=== PATIENT | female | born 1990 | race Caucasian/White ===

== ENCOUNTER 2020-06-05 20:49 | Emergency (ER) | payer BC ==
[2020-06-05] MEDS ORDERED: ACETAMINOPHEN TAB 500 MG TAB PO STA (21:16)
--- NOTE | 2020-06-05 21:20 | ED ---
Abdominal Pain HPI - General Chief Complaint: Abdominal Pain Stated Complaint: Abdominal and back pain Time Seen by Provider: 06/05/20 20:58 Source: patient, family Mode of arrival: ambulatory Limitations: no limitations - History of Present Illness Initial Comments: Patient's 29-year-old female presenting to the emergency department with a chief complaint of left-sided abdominal pain. Patient states her symptoms began about 48 hours ago with gradual increase in severity. Patient reports sports she has significant pain about 2 hours prior to arrival but has now subsided. States the pain is currently about 4 and dull in nature. Patient states she has also been diagnosed with hypertension but is not treated. Does not see a primary care physician. Sensation was diagnosed with hypertension several years ago. States her younger brother and both her parents have. Denies any renal issues. Denies any nausea or vomiting. Denies any chest pain shortness of breath. - Related Data Previous Rx's Medication Instructions Recorded Ondansetron Odt [Zofran Odt] 4 mg PO Q8HR PRN #10 tab 06/05/20 Tamsulosin [Flomax] 0.4 mg PO DAILY #7 cap 06/05/20 Allergies Allergy/AdvReac Type Severity Reaction Status Date / Time Penicillins Allergy Rash/Hives Verified 06/05/20 20:55 Review of Systems ROS Statement: Those systems with pertinent positive or pertinent negative responses have been documented in the HPI. ROS Other: All systems not noted in ROS Statement are negative. Past Medical History Past Medical History: Asthma, Hypertension History of Any Multi-Drug Resistant Organisms: None Reported Additional Past Surgical History / Comment(s): wisdom teeth Past Psychological History: Anxiety, Depression Smoking Status: Never smoker Past Alcohol Use History: Occasional Past Drug Use History: None Reported General Exam Limitations: no limitations General appearance: alert, in no apparent distress Head exam: Present: atraumatic, normocephalic, normal inspection Eye exam: Present: normal appearance, PERRL, EOMI Pupils: Present: normal accommodation ENT exam: Present: normal exam, normal oropharynx, mucous membranes moist, TM's normal bilaterally, normal external ear exam Neck exam: Present: normal inspection, full ROM. Absent: tenderness Respiratory exam: Present: normal lung sounds bilaterally. Absent: respiratory distress, wheezes Cardiovascular Exam: Present: regular rate, normal rhythm, normal heart sounds GI/Abdominal exam: Present: soft, tenderness (Mild left flank pain.). Absent: distended, guarding, rebound, rigid Extremities exam: Present: normal inspection, full ROM, normal capillary refill. Absent: tenderness Back exam: Present: normal inspection, full ROM, CVA tenderness (L) Neurological exam: Present: alert, oriented X3, CN II-XII intact, normal gait Psychiatric exam: Present: normal affect, normal mood Skin exam: Present: warm, dry, intact, normal color Course Vital Signs 06/05/20 06/05/20 06/05/20 20:50 21:37 22:30 Temperature 98.2 F Pulse Rate 82 89 76 Respiratory 16 18 18 Rate Blood Pressure 202/124 191/119 183/105 O2 Sat by Pulse 96 97 95 Oximetry 06/06/20 00:24 Temperature 98.0 F Pulse Rate 79 Respiratory 18 Rate Blood Pressure 169/113 O2 Sat by Pulse 95 Oximetry Medical Decision Making - Medical Decision Making Patient is a 29-year-old female presenting to the emergency department with chief complaint abdominal pain. On exam there is mild left flank tenderness. Mild left CVA tenderness. CT of abdomen and pelvis reveals several renal stones. There also appears to be a 5 mm obstructing cockle is the left ureter. Left-sided hydronephrosis and hydroureter. Patient also has history of hypertension that is not currently being treated. Patient given fluids, antiemetics and analgesia. She only requested Tylenol for pain control. Patient was discharged with a Tylenol 3 starter pack, Flomax, Zofran. Advised to drink lots of fluid. Patient advised about the importance of establishing care with a primary care physician in order to treat her hypertension. She was also advised to follow-up with urologist. Return parameters were thoroughly discussed with patient was understanding and agreeable. Throughout her ED stay, blood pressure gradually decreased. Case discussed physician. - Lab Data Result diagrams: 06/05/20 21:25 06/05/20:25 Lab Results 06/05/20 06/05/20 06/05/20 Range/Units :25 21:25 21:25 WBC 8.3 (3.8-10.6) k/uL RBC 4.65 (3.80-5.40) m/uL Hgb 13.1 (11.4-16.0) gm/dL Hct 39.5 (34.0-46.0) % MCV 84.9 (80.0-100.0) fL MCH 28.2 (25.0-35.0) pg MCHC 33.2 (31.0-37.0) g/dL RDW 13.2 (11.5-15.5) % Plt Count 278 (150-450) k/uL Neutrophils % 64 % Lymphocytes % 26 % Monocytes % 5 % Eosinophils % 2 % Basophils % 1 % Neutrophils # 5.3 (1.3-7.7) k/uL Lymphocytes # 2.1 (1.0-4.8) k/uL Monocytes # 0.4 (0-1.0) k/uL Eosinophils # 0.2 (0-0.7) k/uL Basophils # 0.1 (0-0.2) k/uL Sodium 142 (137-145) mmol/L Potassium 3.9 (3.5-5.1) mmol/L Chloride 107 (98-107) mmol/L Carbon Dioxide 28 (22-30) mmol/L Anion Gap 7 mmol/L BUN 14 (7-17) mg/dL Creatinine 1.13 H (0.52-1.04) mg/dL Est GFR (CKD-EPI)AfAm 76 (>60 ml/min/1.73 sqM) Est GFR (CKD-EPI)NonAf 66 (>60 ml/min/1.73 sqM) Glucose 103 H (74-99) mg/dL Calcium 9.2 (8.4-10.2) mg/dL Total Bilirubin 0.2 (0.2-1.3) mg/dL AST 22 (14-36) U/L ALT 14 (4-34) U/L Alkaline Phosphatase 90 (38-126) U/L Total Protein 7.0 (6.3-8.2) g/dL Albumin 4.2 (3.5-5.0) g/dL Lipase 101 (23-300) U/L Urine Color Light Yellow Urine Appearance Clear (Clear) Urine pH 6.5 (5.0-8.0) Ur Specific [place] 1.011 (1.001-1.035) Urine Protein Negative (Negative) Urine Glucose (UA) Negative (Negative) Urine Ketones Negative (Negative) Urine Blood Negative (Negative) Urine Nitrite Negative (Negative) Urine Bilirubin Negative (Negative) Urine Urobilinogen <2.0 (<2.0) mg/dL Ur Leukocyte Esterase Trace H (Negative) Urine RBC 1 (0-5) /hpf Urine WBC 4 (0-5) /hpf Ur Squamous Epith Cells <1 (0-4) /hpf Urine Bacteria Rare H (None) /hpf Urine Mucus Rare H (None) /hpf Urine HCG, Qual (Not Detectd) 06/05/20 Range/Units 21:25 WBC (3.8-10.6) k/uL RBC (3.80-5.40) m/uL Hgb (11.4-16.0) gm/dL Hct (34.0-46.0) % MCV (80.0-100.0) fL MCH (25.0-35.0) pg MCHC (31.0-37.0) g/dL RDW (11.5-15.5) % Plt Count (150-450) k/uL Neutrophils % % Lymphocytes % % Monocytes % % Eosinophils % % Basophils % % Neutrophils # (1.3-7.7) k/uL Lymphocytes # (1.0-4.8) k/uL Monocytes # (0-1.0) k/uL Eosinophils # (0-0.7) k/uL Basophils # (0-0.2) k/uL Sodium (137-145) mmol/L Potassium (3.5-5.1) mmol/L Chloride (98-107) mmol/L Carbon Dioxide (22-30) mmol/L Anion Gap mmol/L BUN (7-17) mg/dL Creatinine (0.52-1.04) mg/dL Est GFR (CKD-EPI)AfAm (>60 ml/min/1.73 sqM) Est GFR (CKD-EPI)NonAf (>60 ml/min/1.73 sqM) Glucose (74-99) mg/dL Calcium (8.4-10.2) mg/dL Total Bilirubin (0.2-1.3) mg/dL AST (14-36) U/L ALT (4-34) U/L Alkaline Phosphatase (38-126) U/L Total Protein (6.3-8.2) g/dL Albumin (3.5-5.0) g/dL Lipase (23-300) U/L Urine Color Urine Appearance (Clear) Urine pH (5.0-8.0) Ur Specific [place] (1.001-1.035) Urine Protein (Negative) Urine Glucose (UA) (Negative) Urine Ketones (Negative) Urine Blood (Negative) Urine Nitrite (Negative) Urine Bilirubin (Negative) Urine Urobilinogen (<2.0) mg/dL Ur Leukocyte Esterase (Negative) Urine RBC (0-5) /hpf Urine WBC (0-5) /hpf Ur Squamous Epith Cells (0-4) /hpf Urine Bacteria (None) /hpf Urine Mucus (None) /hpf Urine HCG, Qual Not Detected (Not Detectd) Disposition Clinical Impression: Renal stone, Hydronephrosis Disposition: HOME SELF-CARE Condition: Stable Instructions (If sedation given, give patient instructions): Kidney Stones (ED) Additional Instructions: 2 pressure medication as directed. Follow-up with urologist. Establish a relationship with a primary care physician. Return to emergency department if symptoms worsen. Drink lots of fluids. Prescriptions: Tamsulosin [Flomax] 0.4 mg PO DAILY #7 cap Ondansetron Odt [Zofran Odt] 4 mg PO Q8HR PRN #10 tab PRN Reason: Nausea Is patient prescribed a controlled substance at d/c from ED?: No Referrals: None,Stated [Primary Care Provider] - 1-2 days Pérez Clark MD [REFERRING] - 1-2 days Santo Shepard MD [STAFF PHYSICIAN] - 1-2 days Ginny Hanks DO [REFERRING] - 1-2 days Time of Disposition: 23:53
[2020-06-05 21:40] VITALS: RESP 18
[2020-06-05 21:44] LABS: Basophils # (A) 0.1 k/uL (0-0.2); Basophils % (A) 1 %; Eosinophils # (A) 0.2 k/uL (0-0.7); Eosinophils % (A) 2 %; HCT 39.5 % (34.0-46.0); HGB 13.1 gm/dL (11.4-16.0); Lymphocytes # (A) 2.1 k/uL (1.0-4.8); Lymphocytes % (A) 26 %; MCH 28.2 pg (25.0-35.0); MCHC 33.2 g/dL (31.0-37.0); MCV 84.9 fL (80.0-100.0); Mean Platelet Volume 7.7; Monocytes # (A) 0.4 k/uL (0-1.0); Monocytes % (A) 5 %; Neutrophils # (A) 5.3 k/uL (1.3-7.7); Neutrophils % (A) 64 %; Platelet Count 278 k/uL (150-450); RBC 4.65 m/uL (3.80-5.40); RDW 13.2 % (11.5-15.5); WBC 8.3 k/uL (3.8-10.6)
[2020-06-05 21:48] LABS: Appearance,Urine Clear (Clear); Bacteria,Urine Rare /hpf; Bilirubin,Urine Negative (Negative); Blood,Urine Negative (Negative); Color,Urine Light Yellow; Glucose,Urine (UA) Negative (Negative); Ketones,Urine Negative (Negative); Leukocyte Esterase,Urine Trace (Negative); Mucus,Urine Rare /hpf; Nitrite,Urine Negative (Negative); PH, Urine 6.5 (5.0-8.0); Protein,Urine Negative (Negative); RBC,Urine 1 /hpf (0-5); Specific Gravity,Urine 1.011 (1.001-1.035); Squamous Epithelial Cell,Urine <1 /hpf (0-4); Urobilinogen,Urine <2.0 mg/dL (<2.0); WBC,Urine 4 /hpf (0-5)
[2020-06-05 21:56] LABS: Albumin 4.2 g/dL (3.5-5.0); Calcium 9.2 mg/dL (8.4-10.2); Potassium 3.9 mmol/L (3.5-5.1); Total Bilirubin 0.2 mg/dL (0.2-1.3)
--- NOTE | 2020-06-05 23:30 | CT ---
EXAMINATION TYPE: CT abdomen pelvis w con DATE OF EXAM: 06/05/2020 COMPARISON: None HISTORY: left flank pain CT DLP: 1300.3 mGycm Automated exposure control for dose reduction was used. CONTRAST: Performed with IV Contrast, patient injected with 100 mL of Isovue 300. Multiple axial sections were obtained from the diaphragm to the floor the pelvis with IV contrast. Lung bases are clear. There is no pleural effusion. Heart size is normal. There is no pericardial eff usion. Liver spleen pancreas gallbladder appear normal. Bile ducts are not dilated. Stomach appears normal. There is no adrenal mass. Kidneys have normal size. There is 2 small calculi upper pole left kidney that measure up to 3 mm. Th ere is 6 mm calculus lateral left kidney. There is left side hydronephrosis and hydroureter. There is apparent 5 mm obstructing calculus in the lower left ureter. Bladder distends smoothly. Uterus is an teverted. There is large soft tissue density 7 cm mass adjacent to the uterine fundus that is probabl y large fibroid. There is small amount of fluid in the cul-de-sac. Appendix is posterior and appears normal. There is no mesenteric edema. There is no ascites or free air. There is no sign of a bowel obstructio n. Lumbar vertebra have normal spacing and alignment. Bony pelvis is intact. There is no compression fracture. IMPRESSION: Obstructing calculus lower left ureter with left-sided hydronephrosis and hydroureter. There are several left renal calculi. Minimal free fluid in the pelvis of uncertain significance. This could be physiologic.
[2020-06-05] MEDS ORDERED: ACET/COD 300 MG/30 MG STARTER PACK 6 TAB BTL PO STA (23:51)
[2020-06-06 00:26] VITALS: BP 169/113; PULSE 79; TEMP 98
== END 2020-06-06 00:26 | disposition home or self-care (01) ==
LOC: EC 20:49
DX: N13.2 Hydronephrosis with renal and ureteral calculous obstruction (principal); I10 Essential (primary) hypertension; Z88.0 Allergy status to penicillin
CPT/HCPCS: 36415; 93005; 80053; 83690; 85025; 81001; 81025; 74177; 99284; Q9967

== ENCOUNTER 2020-06-17 20:02 | Observation (INO) | payer BC ==
[2020-06-17 21:24] LABS: Basophils # (A) 0.1 k/uL (0-0.2); Basophils % (A) 1 %; Eosinophils # (A) 0.1 k/uL (0-0.7); Eosinophils % (A) 1 %; HCT 40.9 % (34.0-46.0); HGB 13.2 gm/dL (11.4-16.0); Lymphocytes # (A) 2.6 k/uL (1.0-4.8); Lymphocytes % (A) 28 %; MCH 27.8 pg (25.0-35.0); MCHC 32.3 g/dL (31.0-37.0); Mean Platelet Volume 8.3; Monocytes # (A) 0.4 k/uL (0-1.0); Monocytes % (A) 5 %; Neutrophils # (A) 5.8 k/uL (1.3-7.7); Neutrophils % (A) 64 %; Platelet Count 283 k/uL (150-450); RBC 4.75 m/uL (3.80-5.40); RDW 13.5 % (11.5-15.5); WBC 9.2 k/uL (3.8-10.6)
[2020-06-17] MEDS ORDERED: ASPIRIN 81 MG PO STA (21:26)
[2020-06-17 21:33] LABS: Albumin 3.9 g/dL (3.5-5.0); Calcium 10.6 mg/dL (8.4-10.2); Magnesium 2.2 mg/dL (1.6-2.3); Total Bilirubin 0.3 mg/dL (0.2-1.3); Total Protein 6.8 g/dL (6.3-8.2)
[2020-06-17 21:34] LABS: Appearance,Urine Clear (Clear); Bilirubin,Urine Negative (Negative); Blood,Urine Negative (Negative); Color,Urine Light Yellow; Glucose,Urine (UA) Negative (Negative); Ketones,Urine Negative (Negative); Leukocyte Esterase,Urine Negative (Negative); Nitrite,Urine Negative (Negative); PH, Urine 6.5 (5.0-8.0); Protein,Urine Negative (Negative); Urobilinogen,Urine <2.0 mg/dL (<2.0)
[2020-06-17 21:34] LABS: INR 0.9 (<1.2); Partial Thromboplastin Time 22.9 sec (22.0-30.0); Prothrombin Time 9.4 sec (9.0-12.0)
--- NOTE | 2020-06-17 21:39 | XR ---
EXAMINATION: XR chest 2V DATE AND TIME: 06/17/2020 9:08 PM CLINICAL INDICATION: PHH; Chest Pain TECHNIQUE: Departmental protocol COMPARISON: None FINDINGS: The lungs are clear. The pleural spaces are negative. The cardiac silhouette is not enlarged. The remainder of the mediastinal silhouette is unremarkable. The skeletal structures and soft tissues are negative for acute findings. IMPRESSION: NO ACUTE PROCESS.
[2020-06-17] MEDS ORDERED: LABETALOL 5 MG/ML VIAL MDV IVP STA ×2 (21:47)
[2020-06-17] MEDS ORDERED: NITROGLYCERIN SL TABS 0.4 MG TAB SUBLINGUAL PRN (23:02)
--- NOTE | 2020-06-17 23:05 | ED ---
General Adult HPI - General Source: patient, RN notes reviewed, old records reviewed Mode of arrival: ambulatory Limitations: no limitations <Justin Dorsey - Last Filed: 06/17/20 23:36> <Mei Glover - Last Filed: 06/24/20 03:04> - General Chief complaint: Chest Pain Stated complaint: LT arm pain Time Seen by Provider: 06/17/20 20:38 - History of Present Illness Initial comments: 29-year-old female patient presents to ED for evaluation of chest pain and hypertension. Patient reports that she was hypertensive in the past however she is noncompliant medications. Patient fourth that she was started on amlodipine by her primary care provider on Sunday. Patient reports that she has had substernal chest pressure since Sunday. Today she developed some aching in her left shoulder. She denies any shortness of breath. She denies any substernal chest pain this time. She does report that her blood pressure been very elevated. She denies any other acute complaints at this time. Denies any headaches or changes in vision. Systemic: Pt denies fatigue, fever/chills, rash. Pt denies weakness, night swea ts, weight loss. Neuro: Pt denies headache, visual disturbances, syncope or pre-syncope. HEENT: Pt denies ocular discharge or irritation, otalgia, rhinorrhea, pharyngitis or notable lymphadenopathy. Cardiopulmonary: Pt denies SOB, heart palpitations, dyspnea on exertion. Abdominal/GI: Pt denies abdominal pain, n/v/d. : Pt denies dysuria, burning w/ urination, frequency/urgency. Denies new onset urinary or bowel incontinence. MSK: Pt denies myalgia, loss of strength or function in extremities. Neuro: Pt denies new onset weakness, paresthesias. (Justin Dorsey) - Related Data Home Medications Medication Instructions Recorded Confirmed Acetaminophen Tab [Tylenol] 1,000 mg PO Q8H PRN 06/17/20 06/17/20 DULoxetine HCL [Cymbalta] 30 mg PO HS 06/17/20 06/17/20 Loratadine [Claritin] 10 mg PO DAILY PRN 06/17/20 06/17/20 Previous Rx's Medication Instructions Recorded amLODIPine [Norvasc] 10 mg PO HS #30 tab 06/19/20 lisinopriL [Zestril] 20 mg PO DAILY #30 tab 06/19/20 Allergies Allergy/AdvReac Type Severity Reaction Status Date / Time lactose Allergy Abdominal Verified 06/18/20 15:09 Pain Penicillins Allergy Rash/Hives Verified 06/17/20 21:51 Review of Systems ROS Other: All systems not noted in ROS Statement are negative. <Justin Dorsey - Last Filed: 06/17/20 23:36> ROS Other: All systems not noted in ROS Statement are negative. <Mei Glover Ama - Last Filed: 06/24/20 03:04> ROS Statement: Those systems with pertinent positive or pertinent negative responses have been documented in the HPI. Past Medical History Past Medical History: Asthma, Hypertension History of Any Multi-Drug Resistant Organisms: None Reported Additional Past Surgical History / Comment(s): wisdom teeth Past Psychological History: Anxiety, Depression Smoking Status: Never smoker Past Alcohol Use History: Occasional Past Drug Use History: None Reported <Justin Dorsey - Last Filed: 06/17/20 23:36> General Exam Limitations: no limitations <WillianJustin - Last Filed: 06/17/20 23:36> - General Exam Comments Initial Comments: Constitutional: NAD, AOX3, Pt has pleasant affect. HEENT: NC/AT, trachea midline, neck supple, no lymphadenopathy. Posterior pharynx non erythematous, without exudates. External ears appear normal, without discharge. Mucous membranes moist. Eyes PERRLA, EOM intact. There is no scleral icterus. No pallor noted. Cardiopulmonary: RRR, no murmurs, rubs or gallops, no JVD noted. Lungs CTAB in anterior and posterior boyle. No peripheral edema. Abdominal exam: Abdomen soft and non-distended. Abdomen non-tender to palpation in all 4 quadrants. Bowel sounds active in LLQ. No hepatosplenomegaly. No ecchymosis Neuro: CN II-XII grossly intact. No nuchal rigidity. No raccon eyes, no sweeney sign, no hemotympanum. No cervical spinal tenderness. MSK: No posterior calf tenderness bilaterally, homans sign negative bilaterally. Posterior tibialis and radial pulse +2 bilaterally. Sensation intact in upper and lower extremities. Full active ROM in upper and lower extremities, 5/5 stregnth. (Justin Dorsey) Course Vital Signs 06/17/20 06/17/20 06/17/20 20:03 20:29 20:30 Temperature 98.2 F Pulse Rate 96 89 80 Pulse Rate [ Beader Tender ] Respiratory 20 16 22 Rate Blood Pressure 176/122 O2 Sat by Pulse 100 Oximetry 06/17/20 06/17/20 06/17/20 20:32 20:45 21:15 Temperature Pulse Rate 96 82 Pulse Rate [ 96 Beader Tender ] Respiratory 20 18 Rate Blood Pressure 175/105 159/107 O2 Sat by Pulse Oximetry 06/17/20 06/17/20 06/17/20 21:30 21:43 21:45 Temperature Pulse Rate 82 90 86 Pulse Rate [ Beader Tender ] Respiratory 19 15 18 Rate Blood Pressure 171/100 171/108 171/108 O2 Sat by Pulse 97 Oximetry 06/17/20 06/17/20 06/17/20 22:00 22:15 22:30 Temperature Pulse Rate 85 81 82 Pulse Rate [ Beader Tender ] Respiratory 16 20 20 Rate Blood Pressure 171/108 162/98 154/93 O2 Sat by Pulse Oximetry 06/17/20 06/17/20 06/17/20 22:45 23:00 23:15 Temperature Pulse Rate 73 66 68 Pulse Rate [ Beader Tender ] Respiratory 16 20 16 Rate Blood Pressure 156/98 150/97 148/96 O2 Sat by Pulse Oximetry Medical Decision Making - Lab Data Result diagrams: 06/17/20 21:17 06/17/20 21:17 - EKG Data -: EKG Interpreted by In (and Dr. Glover ) <Justin Dorsey - Last Filed: 06/17/20 23:36> - Lab Data Result diagrams: 06/17/20 21:17 06/19/20 06:13 <Mei Glover - Last Filed: 06/24/20 03:04> - Medical Decision Making 29-year-old female patient presents to ED for evaluation of chest pain and hyp ertension. Patient reports that she was hypertensive in the past however she is noncompliant medications. Patient fourth that she was started on amlodipine by her primary care provider on Sunday. Patient reports that she has had substernal chest pressure since Sunday. Today she developed some aching in her left shoulder. She denies any shortness of breath. She denies any substernal chest pain this time. She does report that her blood pressure been very elevated. She denies any other acute complaints at this time. Denies any headaches or changes in vision. Visual signs displayed hypertension. Physical exam did not display acute pathology. Laboratory investigations were obtained significant for mildly increased creatinine. EKG is nonischemic. Troponin is negative. It was administered 10 mg labetalol blood pressure dropped nicely. Patient will be admitted for hypertensive urgency and serial troponins. Case discussed with Dr. Glover. Accepting physician Dr. Garrett who requested 300mg labatalol po BID starting tomorrow morning. (Justin Dorsey) I was available for consultation in the emergency department. The history and physical exam were done by the midlevel provider. I was consulted for this patients care. I reviewed the case with the midlevel provider and based on their presentation of the patient, I agree with the assessment, medical decision making and plan of care as documented. Chart was dictated using [email or web address] dictation software. Attempts were made to correct any dictation errors however some typographical errors may persist. Patient was seen during a national state of emergency due to the Covid-19 pandemic. (Mei Glover) - Lab Data Lab Results 06/17/20 06/17/20 06/17/20 Range/Units 21:17 21:17 21:17 WBC 9.2 (3.8-10.6) k/uL RBC 4.75 (3.80-5.40) m/uL Hgb 13.2 (11.4-16.0) gm/dL Hct 40.9 (34.0-46.0) % MCV 86.0 (80.0-100.0) fL MCH 27.8 (25.0-35.0) pg MCHC 32.3 (31.0-37.0) g/dL RDW 13.5 (11.5-15.5) % Plt Count 283 (150-450) k/uL Neutrophils % 64 % Lymphocytes % 28 % Monocytes % 5 % Eosinophils % 1 % Basophils % 1 % Neutrophils # 5.8 (1.3-7.7) k/uL Lymphocytes # 2.6 (1.0-4.8) k/uL Monocytes # 0.4 (0-1.0) k/uL Eosinophils # 0.1 (0-0.7) k/uL Basophils # 0.1 (0-0.2) k/uL PT 9.4 (9.0-12.0) sec INR 0.9 (<1.2) APTT 22.9 (22.0-30.0) sec Sodium 140 (137-145) mmol/L Potassium 4.0 (3.5-5.1) mmol/L Chloride 106 (98-107) mmol/L Carbon Dioxide 26 (22-30) mmol/L Anion Gap 8 mmol/L BUN 19 H (7-17) mg/dL Creatinine 1.07 H (0.52-1.04) mg/dL Est GFR (CKD-EPI)AfAm 82 (>60 ml/min/1.73 sqM) Est GFR (CKD-EPI)NonAf 71 (>60 ml/min/1.73 sqM) Glucose 119 H (74-99) mg/dL Calcium 10.6 H (8.4-10.2) mg/dL Magnesium 2.2 (1.6-2.3) mg/dL Total Bilirubin 0.3 (0.2-1.3) mg/dL AST 23 (14-36) U/L ALT 13 (4-34) U/L Alkaline Phosphatase 83 (38-126) U/L Troponin I (0.000-0.034) ng/mL Total Protein 6.8 (6.3-8.2) g/dL Albumin 3.9 (3.5-5.0) g/dL Urine Color Urine Appearance (Clear) Urine pH (5.0-8.0) Ur Specific [place] (1.001-1.035) Urine Protein (Negative) Urine Glucose (UA) (Negative) Urine Ketones (Negative) Urine Blood (Negative) Urine Nitrite (Negative) Urine Bilirubin (Negative) Urine Urobilinogen (<2.0) mg/dL Ur Leukocyte Esterase (Negative) Urine HCG, Qual (Not Detectd) 06/17/20 06/17/20 06/17/20 Range/Units 21:17 21:18 21:18 WBC (3.8-10.6) k/uL RBC (3.80-5.40) m/uL Hgb (11.4-16.0) gm/dL Hct (34.0-46.0) % MCV (80.0-100.0) fL MCH (25.0-35.0) pg MCHC (31.0-37.0) g/dL RDW (11.5-15.5) % Plt Count (150-450) k/uL Neutrophils % % Lymphocytes % % Monocytes % % Eosinophils % % Basophils % % Neutrophils # (1.3-7.7) k/uL Lymphocytes # (1.0-4.8) k/uL Monocytes # (0-1.0) k/uL Eosinophils # (0-0.7) k/uL Basophils # (0-0.2) k/uL PT (9.0-12.0) sec INR (<1.2) APTT (22.0-30.0) sec Sodium (137-145) mmol/L Potassium (3.5-5.1) mmol/L Chloride (98-107) mmol/L Carbon Dioxide (22-30) mmol/L Anion Gap mmol/L BUN (7-17) mg/dL Creatinine (0.52-1.04) mg/dL Est GFR (CKD-EPI)AfAm (>60 ml/min/1.73 sqM) Est GFR (CKD-EPI)NonAf (>60 ml/min/1.73 sqM) Glucose (74-99) mg/dL Calcium (8.4-10.2) mg/dL Magnesium (1.6-2.3) mg/dL Total Bilirubin (0.2-1.3) mg/dL AST (14-36) U/L ALT (4-34) U/L Alkaline Phosphatase (38-126) U/L Troponin I <0.012 (0.000-0.034) ng/mL Total Protein (6.3-8.2) g/dL Albumin (3.5-5.0) g/dL Urine Color Light Yellow Urine Appearance Clear (Clear) Urine pH 6.5 (5.0-8.0) Ur Specific [place] 1.010 (1.001-1.035) Urine Protein Negative (Negative) Urine Glucose (UA) Negative (Negative) Urine Ketones Negative (Negative) Urine Blood Negative (Negative) Urine Nitrite Negative (Negative) Urine Bilirubin Negative (Negative) Urine Urobilinogen <2.0 (<2.0) mg/dL Ur Leukocyte Esterase Negative (Negative) Urine HCG, Qual Not Detected (Not Detectd) - EKG Data EKG Comments: ventricular rate 87, plan: 62, QRS 100, QT/QTC 368/442. Normal sinus rhythm, normal EKG, no concern for acute ischemia at this time. (Justin Dorsey) Disposition Is patient prescribed a controlled substance at d/c from ED?: No <Justin Dorsey - Last Filed: 06/17/20 23:36> <Mei Glover - Last Filed: 06/24/20 03:04> Clinical Impression: Chest pain, Hypertensive urgency Disposition: ADMITTED IP TO THIS HOSP Condition: Stable
[2020-06-18 02:47] LABS: Cholesterol 140 mg/dL (<200); HDL Cholesterol 43 mg/dL (40-60); LDL Cholesterol,Calculated 87 mg/dL (0-99); Triglycerides 50 mg/dL (<150)
[2020-06-18] MEDS ORDERED: ACETAMINOPHEN TAB 500 MG TAB PO PRN (06:44)
[2020-06-18] MEDS ORDERED: LORATADINE 10 MG TAB PO PRN (06:44)
[2020-06-18] MEDS ORDERED: ASPIRIN 325 MG TAB PO SCH (09:00)
[2020-06-18] MEDS ORDERED: LABETALOL 100 MG TAB PO SCH (09:00)
[2020-06-18] MEDS ORDERED: LABETALOL 200 MG TAB PO SCH (09:00)
--- NOTE | 2020-06-18 10:18 | P.CRDCN ---
History of Present Illness History of present illness: HISTORY OF PRESENTING ILLNESS This is a pleasant 29-year-old female past medical history significant for hypertension and noncompliance. He denies prior history of coronary artery disease and does not follow with gas reverser. We have been asked to see in consultation for this pain. She states she was diagnosed with hypertension approximately 4 years ago and initially was on medications but over time she stopped taking them. She came to the emergency room last week with symptoms of abdominal pain and was diagnosed with a left obstructing renal calculi with noted hydronephrosis. At that time she was hypertensive as well. She saw her primary care physician and was started on amlodipine almost certain combination tablet. Her first dose of the pill was on Sunday. When she took the medication approximately one hour after she noted a sensation in her chest not really a pain or pressure just had she describes it and then he tingling in her left hand. The following day when she took her medication she again had a similar symptom one hour after taking the combination tablet. She did pass her kidney stone uneventfully last week with no pain. Her abdomen has been essentially unremarkable. Last night an hour after taking her medication she then had another discomfort in her chest and that time she felt a heavy sensation in the left upper arm prompting her to come to the emergency department. On arrival to the emergency room her blood pressure was 176/122 despite having taken her medication. Repeat this morning after multiple doses of labetalol is 150/91. She is seen and examined sitting up in bed in no acute distress. She denies any further symptoms of chest discomfort, shortness of breath, dizziness, palpitations, abdominal discomfort or nausea. DIAGNOSTICS EKG reveals sinus mechanism with no acute ST or T wave abnormalities noted. Chest xray negative for an acute process. Laboratory reviewed, CBC unremarkable, sodium 140, potassium 4.0, creatinine 1.07, magnesium 2.2, cardiac enzymes negative 3, LDL 87. Current cardiac medications include amlodipine/olmesartan 5/20 mg at bedtime. REVIEW OF SYSTEMS At the time of my exam: CONSTITUTIONAL: Denies fever or chills. CARDIOVASCULAR: Denies chest pain, shortness of breath, orthopnea, PND or palpitations. RESPIRATORY: Denies cough. GASTROINTESTINAL: Denies abdominal pain, diarrhea, constipation, nausea or vomiting. MUSCULOSKELETAL: Denies myalgias. NEUROLOGIC: Denies numbness, tingling or weakness. ENDOCRINE: Denies fatigue, weight change, polydipsia or polyurina. GENITOURINARY: Denies burning, hematuria or urgency with micturation. HEMATOLOGIC: Denies history of anemia or bleeding. PHYSICAL EXAMINATION CONSTITUTIONAL: No apparent distress. HEENT: Head is normocephalic. Pupils are equal, round. Sclerae anicteric. Mucous membranes of the mouth are moist. No JVD. No carotid bruit. CHEST EXAMINATION: Lungs are clear to auscultation. No chest wall tenderness is noted on palpation or with deep breathing. HEART EXAMINATION: Regular rate and rhythm. S1, S2 heard. No murmurs, gallops or rub. ABDOMEN: Soft, nontender. Positive bowel sounds. EXTREMITIES: 2+ peripheral pulses, no lower extremity edema and no calf tenderness. NEUROLOGIC EXAMINATION: Patient is awake, alert and oriented x3. ASSESSMENT Chest pain, atypical for angina. An acute coronary event has been ruled out. Left renal calculi with hydronephrosis Acute kidney injury Hypertension PLAN Chest pain is atypical for angina. It occurs one hour after taking a new medication. She is currently on a combination tablet. We recommend splitting these medications and taking amlodipine in the morning and the arm in the evening so we can assess for which medication is causing her side effects. Obtain renal artery duplex along with bilateral kidney ultrasound. We will continue secondary causes for hypertension as an outpatient once her renal anatomy and neurologic condition has been addressed. Follow-up in the office with Dr. Elaine in the office in approximately 2-3 weeks. Thank you kindly for this consultation. Nurse Practitioner note has been reviewed, I agree with a documented findings and plan of care. Patient was seen and examined. Past Medical History Past Medical History: Asthma, Hypertension History of Any Multi-Drug Resistant Organisms: None Reported Additional Past Surgical History / Comment(s): wisdom teeth Past Anesthesia/Blood Transfusion Reactions: No Reported Reaction Past Psychological History: Anxiety, Depression Smoking Status: Never smoker Past Alcohol Use History: Occasional Past Drug Use History: None Reported Medications and Allergies Home Medications Medication Instructions Recorded Confirmed Type Acetaminophen Tab [Tylenol Tab] 1,000 mg PO Q8H PRN 06/17/20 06/17/20 History DULoxetine HCL [Cymbalta] 30 mg PO HS 06/17/20 06/17/20 History Loratadine [Claritin] 10 mg PO DAILY PRN 06/17/20 06/17/20 History amLODIPine BES/OLMESARTAN MED 1 tab PO HS 06/17/20 06/17/20 History [amLODIPine BES/OLMESARTAN MED 5-20 mg] Allergies Allergy/AdvReac Type Severity Reaction Status Date / Time Penicillins Allergy Rash/Hives Verified 06/17/20 21:51 Physical Exam Vitals: Vital Signs Temp Pulse Pulse Resp BP BP Pulse Ox 06/18/20 09:00 18 06/18/20 07:50 98 F 74 18 150/91 97 06/18/20 03:00 97.9 F 69 157/99 99 06/18/20 00:04 98.3 F 69 166/101 97 06/17/20 23:30 98.2 F 06/17/20 23:15 68 16 148/96 06/17/20 23:00 66 20 150/97 06/17/20 22:45 73 16 156/98 06/17/20 22:30 82 20 154/93 06/17/20 22:15 81 20 162/98 06/17/20 22:00 85 16 171/108 06/17/20 21:45 86 18 171/108 06/17/20 21:43 90 15 171/108 97 06/17/20 21:30 82 19 171/100 06/17/20 21:15 82 18 159/107 06/17/20 20:45 96 20 175/105 06/17/20 20:32 96 06/17/20 20:30 80 22 06/17/20 20:29 89 16 06/17/20 20:03 98.2 F 96 20 176/122 100 Intake and Output 06/17/20 06/18/20 06/18/20 22:59 06:59 14:59 Other: Weight 94.347 kg 94.347 kg Results 06/17/20 21:17 06/17/20 21:17 Cardiac Enzymes 06/17/20 06/17/20 06/18/20 Range/Units 21:17 21:17 00:25 AST 23 (14-36) U/L Troponin I <0.012 <0.012 (0.000-0.034) ng/mL 06/18/20 Range/Units 02:18 AST (14-36) U/L Troponin I <0.012 (0.000-0.034) ng/mL Coagulation 06/17/20 Range/Units 21:17 PT 9.4 (9.0-12.0) sec APTT 22.9 (22.0-30.0) sec Lipids 06/18/20 Range/Units 02:18 Triglycerides 50 (<150) mg/dL Cholesterol 140 (<200) mg/dL HDL Cholesterol 43 (40-60) mg/dL CBC 06/17/20 Range/Units 21:17 WBC 9.2 (3.8-10.6) k/uL RBC 4.75 (3.80-5.40) m/uL Hgb 13.2 (11.4-16.0) gm/dL Hct 40.9 (34.0-46.0) % Plt Count 283 (150-450) k/uL Comprehensive Metabolic Panel 06/17/20 Range/Units 21:17 Sodium 140 (137-145) mmol/L Potassium 4.0 (3.5-5.1) mmol/L Chloride 106 (98-107) mmol/L Carbon Dioxide 26 (22-30) mmol/L BUN 19 H (7-17) mg/dL Creatinine 1.07 H (0.52-1.04) mg/dL Glucose 119 H (74-99) mg/dL Calcium 10.6 H (8.4-10.2) mg/dL AST 23 (14-36) U/L ALT 13 (4-34) U/L Alkaline Phosphatase 83 (38-126) U/L Total Protein 6.8 (6.3-8.2) g/dL Albumin 3.9 (3.5-5.0) g/dL Current Medications Generic Name Dose Route Start Last Admin Trade Name Freq PRN Reason Stop Dose Admin Acetaminophen 1,000 mg 06/18/20 06:44 Tylenol Tab PO Q8H PRN Pain Amlodipine Besylate 10 mg 06/18/20 09:15 Norvasc PO DAILY [facility] Duloxetine HCl 30 mg 06/18/20 21:00 Cymbalta PO HS [facility] Loratadine 10 mg 06/18/20 06:44 Claritin PO DAILY PRN Allergy Symptoms Nitroglycerin 0.4 mg 06/17/20 23:02 Nitrostat SUBLINGUAL Q5M PRN Chest Pain Valsartan 160 mg 06/18/20 21:00 Diovan PO HS [facility] Intake and Output 06/17/20 06/18/20 06/18/20 22:59 06:59 14:59 Other: Weight 94.347 kg 94.347 kg 06/17/20 21:17 06/17/20 21:17
[2020-06-18] MEDS: amLODIPine 10 MG TAB PO SCH (11:40)
--- NOTE | 2020-06-18 12:45 | US ---
EXAMINATION TYPE: US renal artery duplex complet DATE OF EXAM: 06/18/2020 COMPARISON: CT CLINICAL HISTORY: uncontrolled htn. Pt stated has been on blood pressure medication x 2 years approxi mately. Patient stated passed one renal stone recently. MEASUREMENTS: RENAL SIZE: Rt Kidney: 10.8 x 4.6 x 3.8cm;no hydronephrosis or masses seen Lt Kidney: 11.1 x 5.2 x 5.9cm; mild hydronephrosis is noted. Multiple left renal calcifications are s een with largest shadowing stones mid inferior pole and cluster size = 0.8 x 0.7 x 0.5cm. Bladder is wnl. No ureteral jets are seen within 3 minute observation. RESISTANCE INDEX Right: 0.63 inferiorly Left: 0.65 mid RA/AO RATIO (< 3.5 ) Right: 1.5 Left: 1.3 RA VELOCITY ( < 180 cm/s) Right: 169.6cm/s distally Left: 133.1cm/s mid Mildly elevated PSV is noted in Distal Right Renal Artery and in Mid left Renal Artery. Aorta size is wnl. Incidental uterine fibroid was seen at time of bladder assessment. IMPRESSION: 1. No diagnostic evidence of renal artery stenosis. 2. Mild left hydronephrosis with multiple left-sided renal calculi. 3. Incidental note made of a pelvic mass most likely related to a uterine fibroid. Pelvic ultrasound recommended.
[2020-06-18] MEDS ORDERED: SODIUM CHLORIDE 0.9% 1,000 ML IV SCH (13:15)
--- NOTE | 2020-06-18 19:58 | P.HPIM ---
History of Present Illness H&P Date: 06/18/20 Chief Complaint: Feeling unwell History of presenting complaint: This is a very pleasant 29-year-old patient Dr. Clark. Patient was having high blood pressure and was seen by her family doctor is started on a combination pill of amlodipine/olmesartan 5-20. Tablet to be taken at night. This started 5 days ago. Patient started having different symptoms including feeling unwell thing Lasix burning sensation in the arm tired and rundown. Because a mixture of the symptoms decided to come in. The patient ER was 176/122. Patient was given 20 mg of IV labetalol. Early this morning did receive a dose of by mouth labetalol. Cardiology were consulted. Does of the upper combination indication was split into morning and evening dose. Blood pressures be better controlled. Patient has been at the bedside. Patient's calcium noted to be high and crit is also high. Also found to have kidney stones. Review of systems: GEN.: Tired EYES: None HEENT: None NECK: None RESPIRATORY: None CARDIOVASCULAR: As above GASTROINTESTINAL: None GENITOURINARY: None MUSCULOSKELETAL: None LYMPHATICS: None HEMATOLOGICAL: None PSYCHIATRY: Some anxiety NEUROLOGICAL: None Past medical history to include: Asthma, hypertension, anxiety depression Social history: Does not smoke or drink alcohol. Lives with her . Physical examination: VITAL SIGNS: 98.2, 96, 20, 176/122, 100% on room air GENERAL: BMI 29.8, sitting on bed, slightly anxious. EYES: Pupils equal. Conjunctiva normal. HEENT: External appearance of nose and ears normal, oral cavity grossly normal. NECK: JVD not raised; masses not palpable. HEART: First and second heart sounds are normal; no edema. LUNGS: Respiratory rate normal; clear to auscultation. ABDOMEN: Soft, nontender, liver spleen not palpable, no masses palpable. PSYCH: Alert and oriented x3; mood and affect slightly anxiousl. NEUROLOGICAL: Cranial nerves grossly intact; no facial asymmetry, power and sensation grossly intact. LYMPHATICS: No lymph nodes palpable in the axilla and neck INVESTIGATIONS, reviewed in the clinical context: White count 9.2 hemoglobin 13.2 potassium 4 bun 19 creatinine 1.07 calcium 10.6 Phosphorus 4.7 Troponin I 3 negative LDL 87 EKG tracing personally reviewed by me-normal sinus rhythm Chest x-ray film personally reviewed by me-lung boyle clear Ultrasound renal artery duplex complaint-left kidney mild hydronephrosis multiple left renal calcifications, uterine fibroid Assessment: -Accented hypertension -Multiple left kidney stones -Acute versus chronic kidney disease with elevated creatinine. -Hypercalcemia.- -Patient has kidney disease, hypercalcemia hypertension. Recheck patient's phosphorus, and iPTH Plan: We'll get a nephrology opinion. Meantime will give the patient IV fluids and recheck renal function the morning. And the calcium. Above labs elevated. Patient blood pressures being monitored. Care was discussed with the patient has been the bedside. Past Medical History Past Medical History: Asthma, Hypertension History of Any Multi-Drug Resistant Organisms: None Reported Additional Past Surgical History / Comment(s): wisdom teeth Past Anesthesia/Blood Transfusion Reactions: No Reported Reaction Past Psychological History: Anxiety, Depression Smoking Status: Never smoker Past Alcohol Use History: Occasional Past Drug Use History: None Reported Medications and Allergies Home Medications Medication Instructions Recorded Confirmed Type Acetaminophen Tab [Tylenol Tab] 1,000 mg PO Q8H PRN 06/17/20 06/17/20 History DULoxetine HCL [Cymbalta] 30 mg PO HS 06/17/20 06/17/20 History Loratadine [Claritin] 10 mg PO DAILY PRN 06/17/20 06/17/20 History amLODIPine BES/OLMESARTAN MED 1 tab PO HS 06/17/20 06/17/20 History [amLODIPine BES/OLMESARTAN MED 5-20 mg] Allergies Allergy/AdvReac Type Severity Reaction Status Date / Time lactose Allergy Abdominal Verified 06/18/20 15:09 Pain Penicillins Allergy Rash/Hives Verified 06/17/20 21:51 Physical Exam Vitals: Vital Signs Temp Pulse Pulse Resp BP BP Pulse Ox 06/18/20 11:34 74 142/86 06/18/20 09:00 18 06/18/20 07:50 98 F 74 18 150/91 97 06/18/20 03:00 97.9 F 69 157/99 99 06/18/20 00:04 98.3 F 69 166/101 97 06/17/20 23:30 98.2 F 06/17/20 23:15 68 16 148/96 06/17/20 23:00 66 20 150/97 06/17/20 22:45 73 16 156/98 06/17/20 22:30 82 20 154/93 06/17/20 22:15 81 20 162/98 06/17/20 22:00 85 16 171/108 06/17/20 21:45 86 18 171/108 06/17/20 21:43 90 15 171/108 97 06/17/20 21:30 82 19 171/100 06/17/20 21:15 82 18 159/107 06/17/20 20:45 96 20 175/105 06/17/20 20:32 96 06/17/20 20:30 80 22 06/17/20 20:29 89 16 06/17/20 20:03 98.2 F 96 20 176/122 100 Intake and Output 06/17/20 06/18/20 06/18/20 22:59 06:59 14:59 Other: Weight 94.347 kg 94.347 kg Results CBC & Chem 7: 06/17/20 21:17 06/17/20 21:17 Labs: Abnormal Lab Results - Last 24 Hours (Table) 06/17/20 Range/Units 21:17 BUN 19 H (7-17) mg/dL Creatinine 1.07 H (0.52-1.04) mg/dL Glucose 119 H (74-99) mg/dL Calcium 10.6 H (8.4-10.2) mg/dL
[2020-06-18] MEDS: SODIUM CHLORIDE 0.9% 1,000 ML IV SCH (20:14)
[2020-06-18] MEDS ORDERED: VALSARTAN 160 MG TAB PO SCH (21:00)
[2020-06-18] MEDS ORDERED: DULoxetine HCL 30 MG CAPSULE.DR PO SCH (21:00)
[2020-06-19] MEDS: SODIUM CHLORIDE 0.9% 1,000 ML IV SCH ×2 (00:13→07:40)
[2020-06-19 06:42] LABS: African American GFR (CKD) >90 (>60 ml/min/1.73 sqM); Anion Gap 5 mmol/L; Blood Urea Nitrogen 16 mg/dL (7-17); Carbon Dioxide 24 mmol/L (22-30); Chloride 109 mmol/L (98-107); Glucose 95 mg/dL (74-99); Non-African American GFR(CKD) >90 (>60 ml/min/1.73 sqM); Potassium 4.2 mmol/L (3.5-5.1); Sodium 138 mmol/L (137-145)
[2020-06-19 08:22] VITALS: RESP 16
[2020-06-19] MEDS: amLODIPine 10 MG TAB PO SCH (08:23)
[2020-06-19] MEDS ORDERED: lisinopriL 20 MG TAB PO SCH (09:00)
--- NOTE | 2020-06-19 09:02 | P.NPCON ---
History of Present Illness - Reason for Consult acute renal failure, accelerated hypertension - History of Present Illness Reason for consultation: Acute kidney injury and hypertension History of present illness: Patient is a 29-year-old female seen in consultation for acute kidney injury and hypertension. Creatinine was 1.07 on admission and is down to 0.86 today. Patient presented to the hospital due to pain in her left arm. Patient states she was diagnosed with high blood pressure several years ago but stopped taking her medications after she lost her insurance and wasn't able to afford the [employer] dications. She states she was maintained on amlodipine and olmesartan outpatient. Patient also feels that the antihypertensive is causing the pain in her left arm. She admits to good urine output. No hematuria or dysuria. No chest pain or shortness of breath. No vomiting or diarrhea. Blood pressure this morning was 157/102. Patient states her parents as well as a sibling have high blood pressure. Denies any family history of hemorrhagic strokes. No family history of renal disease. Renal artery duplex revealed no evidence of hydronephrosis or renal artery stenosis. Vital signs are stable. General: The patient appeared well nourished and normally developed. HEENT: Head exam is unremarkable. Neck is without jugular venous distension. LUNGS: Lungs are clear to auscultation and percussion. Breath sounds decreased. HEART: Rate and Rhythm are regular. First and second heart sounds normal. No murmurs, rubs or gallops. ABDOMEN: Abdominal exam reveals normal bowel sounds. Non-tender and non- distended. EXTREMITITES: No clubbing, cyanosis, or edema. Past Medical History Past Medical History: Asthma, Hypertension History of Any Multi-Drug Resistant Organisms: None Reported Additional Past Surgical History / Comment(s): wisdom teeth Past Anesthesia/Blood Transfusion Reactions: No Reported Reaction Past Psychological History: Anxiety, Depression Smoking Status: Never smoker Past Alcohol Use History: Occasional Past Drug Use History: None Reported Medications and Allergies Home Medications Medication Instructions Recorded Confirmed Type Acetaminophen Tab [Tylenol Tab] 1,000 mg PO Q8H PRN 06/17/20 06/17/20 History DULoxetine HCL [Cymbalta] 30 mg PO HS 06/17/20 06/17/20 History Loratadine [Claritin] 10 mg PO DAILY PRN 06/17/20 06/17/20 History amLODIPine BES/OLMESARTAN MED 1 tab PO HS 06/17/20 06/17/20 History [amLODIPine BES/OLMESARTAN MED 5-20 mg] Allergies Allergy/AdvReac Type Severity Reaction Status Date / Time lactose Allergy Abdominal Verified 06/18/20 15:09 Pain Penicillins Allergy Rash/Hives Verified 06/17/20 21:51 Physical Exam Vitals: Vital Signs Temp Pulse Resp BP Pulse Ox 06/19/20 08:19 97.9 F 76 16 157/102 96 06/19/20 03:00 98.3 F 66 18 150/82 97 06/18/20 20:45 98.6 F 76 18 134/81 97 06/18/20 15:00 98.2 F 74 16 122/78 96 06/18/20 11:34 74 142/86 06/18/20 09:00 18 Intake and Output 06/18/20 06/19/20 06/19/20 22:59 06:59 14:59 Intake Total 850 450 Balance 850 450 Intake: Oral 850 450 Other: Voiding Method Toilet Toilet # Voids 1 1 Results - Lab Results Most recent lab results Calcium 9.0 mg/dL (8.4-10.2) 06/19/20 06:13 Phosphorus 4.7 mg/dL (2.5-4.5) H 06/18/20 02:18 Magnesium 2.2 mg/dL (1.6-2.3) 06/17/20 21:17 06/17/20 21:17 06/19/20 06:13 Assessment and Plan Plan: Assessment: 1. Mild acute kidney injury mostly prerenal improved with IV hydration. Creatinine 0.86 today. UA benign. 2. Hypertensive urgency. Better. Acute coronary syndrome ruled out. Cardiology following. 3. Mild hypercalcemia from hypovolemia. Resolved with IV fluids. Plan: Maintain amlodipine 10 mg once daily. Discontinue valsartan. Add lisinopril 20 mg once daily - will further increase dose depending on blood pressure readings. Hep-Lock IV fluids. Check renin and aldosterone levels. Doubt hyperaldosterone state has no evidence of hypokalemia or alkalosis. Check plasma metanephrines. Thank you for the consultation. I will continue to follow patient with you during her hospital stay.
[2020-06-19 14:40] VITALS: BP 132/83; PULSE 84; TEMP 98
--- NOTE | 2020-06-19 21:47 | P.DS ---
Providers Date of admission: 06/17/20 23:04 Expected date of discharge: 06/19/20 Attending physician: Moreno Garrett Consults: 06/17/20 23:02 Consult Physician Urgent Consulting Provider: Donato Friedman Consult Reason/Comments: chest pain, htn urgency Do you want consulting provider notified?: Yes 06/18/20 13:01 Consult Physician Routine Consulting Provider: Cara Ham Consult Reason/Comments: ckd Do you want consulting provider notified?: Yes Primary care physician: Pérez Clark [facility] Course: Chief Complaint: Feeling unwell History of presenting complaint: This is a very pleasant 29-year-old patient Dr. Clark. Patient was having high blood pressure and was seen by her family doctor is started on a combination pill of amlodipine/olmesartan 5-20. Tablet to be taken at night. This started 5 days ago. Patient started having different symptoms including feeling unwell thing Lasix burning sensation in the arm tired and rundown. Because a mixture of the symptoms decided to come in. The patient ER was 176/122. Patient was given 20 mg of IV labetalol. Early this morning did receive a dose of by mouth labetalol. Cardiology were consulted. Does of the upper combination indication was split into morning and evening dose. Blood pressures be better controlled. Patient has been at the bedside. Patient's calcium noted to be high and crit is also high. Also found to have kidney stones. Given IV fluids. Creatinine came down to 1.07 down to 0.86. Calcium normalized. Intact PTH came back to be low. Blood pressure well controlled. Discussed with the patient has been. Patient was seen by cardiology and nephrology. She'll follow-up as outpatient with them. Consultation: Dr. Cornelius Friedman from cartilage in Dr. Treviño from nephrology Physical examination: VITAL SIGNS: 98, 84, 16, 132/83, GENERAL: Sitting on bed, comfortable EYES: Pupils equal. Conjunctiva normal. HEENT: External appearance of nose and ears normal, oral cavity grossly normal. NECK: JVD not raised; masses not palpable. HEART: First and second heart sounds are normal; no edema. LUNGS: Respiratory rate normal; clear to auscultation. ABDOMEN: Soft, nontender, liver spleen not palpable, no masses palpable. PSYCH: Alert and oriented x3; mood and affect slightly anxiousl. INVESTIGATIONS, reviewed in the clinical context: Potassium 4.2 creatinine 0.86 PTH 2.8-low repeat calcium 9 Previous testing White count 9.2 hemoglobin 13.2 potassium 4 bun 19 creatinine 1.07 calcium 10.6 Phosphorus 4.7 Troponin I 3 negative LDL 87 EKG tracing personally reviewed by me-normal sinus rhythm Chest x-ray film personally reviewed by me-lung boyle clear Ultrasound renal artery duplex complaint-left kidney mild hydronephrosis multiple left renal calcifications, uterine fibroid Assessment: -Accelerated hypertension -Multiple left kidney stones -Acute kidney injury possibly ATN -Hypercalcemia.-From dehydration Disposition: Home Patient Condition at Discharge: Stable Plan - Discharge Summary Discharge Rx Participant: No New Discharge Prescriptions: New amLODIPine [Norvasc] 10 mg PO HS #30 tab lisinopriL [Zestril] 20 mg PO DAILY #30 tab Continue Acetaminophen Tab [Tylenol] 1,000 mg PO Q8H PRN PRN Reason: Pain Loratadine [Claritin] 10 mg PO DAILY PRN PRN Reason: Allergy Symptoms DULoxetine HCL [Cymbalta] 30 mg PO HS Discontinued amLODIPine BES/OLMESARTAN MED [amLODIPine BES/OLMESARTAN MED 5-20 mg] 1 tab PO HS Discharge Medication List Acetaminophen Tab [Tylenol] 1,000 mg PO Q8H PRN 06/17/20 [History] DULoxetine HCL [Cymbalta] 30 mg PO HS 06/17/20 [History] Loratadine [Claritin] 10 mg PO DAILY PRN 06/17/20 [History] amLODIPine [Norvasc] 10 mg PO HS #30 tab 06/19/20 [Rx] lisinopriL [Zestril] 20 mg PO DAILY #30 tab 06/19/20 [Rx] Follow up Appointment(s)/Referral(s): Pérez Clark MD [Primary Care Provider] - 1-2 days Rodger Treviño DO [STAFF PHYSICIAN] - 10 Days Discharge Disposition: HOME SELF-CARE
== END 2020-06-19 15:59 | disposition home or self-care (01) ==
LOC: EC 20:02 → 3NCARDOBS 23:04
PROVIDERS: ADMIT Hospitalist; ATTEND Hospitalist
DX: I16.0 Hypertensive urgency (principal); R07.89 Other chest pain; N17.9 Acute kidney failure, unspecified; I10 Essential (primary) hypertension; E86.1 Hypovolemia; E86.0 Dehydration; E83.52 Hypercalcemia; D25.9 Leiomyoma of uterus, unspecified; Z91.19 Patient's noncompliance with other medical treatment and regimen; N13.2 Hydronephrosis with renal and ureteral calculous obstruction; J45.909 Unspecified asthma, uncomplicated; F41.9 Anxiety disorder, unspecified; F32.9 Major depressive disorder, single episode, unspecified; Z79.899 Other long term (current) drug therapy; Z91.011 Allergy to milk products; Z88.0 Allergy status to penicillin; Z82.49 Family history of ischemic heart disease and other diseases of the circulatory system
CPT/HCPCS: 93005 ×2; 96361; 96374; 99285; 36415; 83835; 82310; 80061; 80053; 80048; 82088; 84244; 83735; 84100; 84484 ×2; 85025; 85610; 85730; 81003; 81025; 83970; 71046; 93975; G0378 ×3

== ENCOUNTER → 2020-07-08 | Outpatient (CLI) | payer OTHER ==
--- NOTE | 2020-07-08 08:44 | US ---
EXAMINATION TYPE: US kidneys/renal and bladder DATE OF EXAM: 07/08/2020 COMPARISON: NONE CLINICAL HISTORY: 29-year-old female I10 HYPERTENSION. Recent passing of renal stones, mild hydroneph rosis seen on the left previously TECHNIQUE: Multiple sonographic images of the kidneys and bladder are obtained. FINDINGS: EXAM MEASUREMENTS: Right Kidney: 10.3 x 4.8 x 4.5 cm Left Kidney: 10.8 x 3.8 x 5.1 cm Right Kidney: no hydronephrosis or masses seen Left Kidney: 0.7cm inferior pole stone seen, mild fullness of the renal collecting system noted Bladder: wnl Bilateral Jets seen: yes IMPRESSION: Residual mild fullness of the left renal collecting system with improvement in the previous hydroneph rosis. Both ureteral jets are now visualized. Additional follow-up as clinically indicated. 7 mm nonobstructive left renal calculus.
== END | disposition home or self-care (01) ==
LOC: RADUSWWP 08:01
PROVIDERS: ATTEND Urology
DX: N20.0 Calculus of kidney (principal); I10 Essential (primary) hypertension; N20.1 Calculus of ureter
CPT/HCPCS: 36415; 76770; 82310; 82565; 83970; 84520

== ENCOUNTER 2020-12-03 15:12 | Inpatient (IN) | payer BC ==
[2020-12-03 15:25] VITALS: RESP 18
[2020-12-03] MEDS ORDERED: SODIUM CHLORIDE 0.9% 1,000 ML IV STA (15:29)
[2020-12-03] MEDS ORDERED: diphenhydrAMINE 50 MG/ML 1 ML VIAL IVP STA (15:29)
[2020-12-03] MEDS ORDERED: METOCLOPRAMIDE 5 MG/ML 2 ML VIAL IVP STA (15:29)
--- NOTE | 2020-12-03 15:30 | ED ---
Nausea/Vomiting/Diarrhea HPI - General Chief complaint: Nausea/Vomiting/Diarrhea Stated complaint: 8 wks preg/poss dehydration Time Seen by Provider: 12/03/20 15:29 Source: patient Mode of arrival: ambulatory Limitations: no limitations - History of Present Illness Initial comments: 30-year-old female, , 8 week presenting to the emergency department with a chief complaint nausea vomiting. Patient states she's been having nausea throughout most of . However, she's been having multiple episodes not bilious and nonbloody vomiting for the past 3 days. Patient states she is also approximately 15 pounds in the last 3-4 weeks because she is not eating much. Patient states she feels like an epigastric burning sensation whenever she is. She does have history of GERD that was treated with famotidine but now she's not taken medication due to the . Patient denies any constipation or diarrhea. Does report some mild pelvic discomfort. Patient also reports brown spotting for the last 2 weeks but no profuse bright red bleeding. She denies any hematuria, medicated melena. Denies dysuria, increased urgency or frequency. Denies any night sweats. Chills. - Related Data Home Medications Medication Instructions Recorded Confirmed DULoxetine HCL [Cymbalta] 30 mg PO HS 06/17/20 12/03/20 Labetalol [Trandate] 200 mg PO BID 12/03/20 12/03/20 Xeg-[id number]-Jluxb Acid 1 cap PO HS 12/03/20 12/03/20 [-U Capsule (formulary)] Allergies Allergy/AdvReac Type Severity Reaction Status Date / Time lactose Allergy Abdominal Verified 12/03/20 17:54 Pain Penicillins Allergy Rash/Hives Verified 12/03/20 17:54 shellfish derived [Shellfish] Allergy Unknown Verified 12/03/20 17:54 valsartan AdvReac Chest Pain Verified 12/03/20 17:54 Review of Systems ROS Statement: Those systems with pertinent positive or pertinent negative responses have been documented in the HPI. ROS Other: All systems not noted in ROS Statement are negative. Past Medical History Past Medical History: Asthma, Hypertension Additional Past Medical History / Comment(s): kidney stones History of Any Multi-Drug Resistant Organisms: None Reported Additional Past Surgical History / Comment(s): wisdom teeth Past Anesthesia/Blood Transfusion Reactions: No Reported Reaction Past Psychological History: Anxiety, Depression Smoking Status: Never smoker Past Alcohol Use History: Occasional Past Drug Use History: None Reported General Exam Limitations: no limitations General appearance: alert, in no apparent distress Head exam: Present: atraumatic, normocephalic, normal inspection Eye exam: Present: normal appearance, PERRL, EOMI Pupils: Present: normal accommodation ENT exam: Present: normal exam, normal oropharynx, mucous membranes moist, TM's normal bilaterally, normal external ear exam Neck exam: Present: normal inspection, full ROM. Absent: tenderness Respiratory exam: Present: normal lung sounds bilaterally. Absent: respiratory distress, wheezes, rales, rhonchi, stridor Cardiovascular Exam: Present: regular rate, normal rhythm, normal heart sounds GI/Abdominal exam: Present: soft, tenderness (Mild suprapubic). Absent: distended, guarding, rebound, rigid External exam: Present: normal external exam. Absent: erythema, lesions, l acerations Speculum exam: Present: normal speculum exam, cervical discharge. Absent: erythema, vaginal discharge, vaginal bleeding, tissue, laceration By manual exam: Present: normal by manual exam Extremities exam: Present: normal inspection, full ROM, normal capillary refill. Absent: tenderness, pedal edema, joint swelling, calf tenderness Back exam: Present: normal inspection, full ROM. Absent: tenderness, CVA tenderness (R), CVA tenderness (L) Neurological exam: Present: alert, oriented X3 Psychiatric exam: Present: normal affect, normal mood Skin exam: Present: warm, dry, intact, normal color Course Vital Signs 12/03/20 15:19 Temperature 98.6 F Pulse Rate 98 Respiratory 18 Rate Blood Pressure 120/81 O2 Sat by Pulse 97 Oximetry Medical Decision Making - Medical Decision Making 30-year-old female, , 9 week presents to emergency with a chief complaint of nausea vomiting. On physical examination, patient has very mild suprapubic tenderness. examination reveals white/yellow cervical discharge but no cervical tenderness. No signs of any vaginal bleeding. Gonorrhea and chlamydia pending. Urine culture pending. General culture pending. CBC unremarkable. CMP reveals hypercalcemia of 13.2. UA showed +1 ketones. She was given 1 L of IV bolus fluids. Elevated leukocyte esterase, 8 WBCs and squamous cells. She will be started on Keflex for asymptomatic bacteriuria. EKG shows sinus bradycardia. Ultrasound reveals an intrauterine with a gestational age of 9 weeks and 1 day. Serum hCG is 225K. Type and screen, ABO pending. mild hypophosphatemia of 1.4. Patient was also given Reglan and Benadryl. Considering her elevated levels of calcium, patient will be admitted for further medical management. Case was discussed with Dr. Quevedo. Admitting physician is - Lab Data Result diagrams: 12/03/20 16:09 12/03/20 16:09 Lab Results 12/03/20 12/03/20 12/03/20 Range/Units 16:09 16:09 16:09 WBC 7.9 (3.8-10.6) k/uL RBC 4.80 (3.80-5.40) m/uL Hgb 14.1 (11.4-16.0) gm/dL Hct 40.2 (34.0-46.0) % MCV 83.8 (80.0-100.0) fL MCH 29.4 (25.0-35.0) pg MCHC 35.1 (31.0-37.0) g/dL RDW 12.7 (11.5-15.5) % Plt Count 262 (150-450) k/uL MPV 8.2 Neutrophils % 70 % Lymphocytes % 21 % Monocytes % 5 % Eosinophils % 2 % Basophils % 1 % Neutrophils # 5.5 (1.3-7.7) k/uL Lymphocytes # 1.7 (1.0-4.8) k/uL Monocytes # 0.4 (0-1.0) k/uL Eosinophils # 0.2 (0-0.7) k/uL Basophils # 0.0 (0-0.2) k/uL Sodium 134 L (137-145) mmol/L Potassium 4.1 (3.5-5.1) mmol/L Chloride 101 (98-107) mmol/L Carbon Dioxide 26 (22-30) mmol/L Anion Gap 7 mmol/L BUN 15 (7-17) mg/dL Creatinine 0.96 (0.52-1.04) mg/dL Est GFR (CKD-EPI)AfAm >90 (>60 ml/min/1.73 sqM) Est GFR (CKD-EPI)NonAf 80 (>60 ml/min/1.73 sqM) Glucose 91 (74-99) mg/dL Calcium 13.2 H* (8.4-10.2) mg/dL Phosphorus 2.4 L (2.5-4.5) mg/dL Total Bilirubin 0.8 (0.2-1.3) mg/dL AST 23 (14-36) U/L ALT 17 (4-34) U/L Alkaline Phosphatase 43 (38-126) U/L Total Protein 7.7 (6.3-8.2) g/dL Albumin 4.3 (3.5-5.0) g/dL Lipase 129 (23-300) U/L HCG, Quant >516236.0 mIU/mL Urine Color Urine Appearance (Clear) Urine pH (5.0-8.0) Ur Specific Patterson (1.001-1.035) Urine Protein (Negative) Urine Glucose (UA) (Negative) Urine Ketones (Negative) Urine Blood (Negative) Urine Nitrite (Negative) Urine Bilirubin (Negative) Urine Urobilinogen (<2.0) mg/dL Ur Leukocyte Esterase (Negative) Urine RBC (0-5) /hpf Urine WBC (0-5) /hpf Ur Squamous Epith Cells (0-4) /hpf Urine Bacteria (None) /hpf Hyaline Casts (0-2) /lpf Urine Mucus (None) /hpf 12/03/20 Range/Units 16:13 WBC (3.8-10.6) k/uL RBC (3.80-5.40) m/uL Hgb (11.4-16.0) gm/dL Hct (34.0-46.0) % MCV (80.0-100.0) fL MCH (25.0-35.0) pg MCHC (31.0-37.0) g/dL RDW (11.5-15.5) % Plt Count (150-450) k/uL MPV Neutrophils % % Lymphocytes % % Monocytes % % Eosinophils % % Basophils % % Neutrophils # (1.3-7.7) k/uL Lymphocytes # (1.0-4.8) k/uL Monocytes # (0-1.0) k/uL Eosinophils # (0-0.7) k/uL Basophils # (0-0.2) k/uL Sodium (137-145) mmol/L Potassium (3.5-5.1) mmol/L Chloride (98-107) mmol/L Carbon Dioxide (22-30) mmol/L Anion Gap mmol/L BUN (7-17) mg/dL Creatinine (0.52-1.04) mg/dL Est GFR (CKD-EPI)AfAm (>60 ml/min/1.73 sqM) Est GFR (CKD-EPI)NonAf (>60 ml/min/1.73 sqM) Glucose (74-99) mg/dL Calcium (8.4-10.2) mg/dL Phosphorus (2.5-4.5) mg/dL Total Bilirubin (0.2-1.3) mg/dL AST (14-36) U/L ALT (4-34) U/L Alkaline Phosphatase (38-126) U/L Total Protein (6.3-8.2) g/dL Albumin (3.5-5.0) g/dL Lipase (23-300) U/L HCG, Quant mIU/mL Urine Color Yellow Urine Appearance Cloudy H (Clear) Urine pH 6.0 (5.0-8.0) Ur Specific Patterson 1.019 (1.001-1.035) Urine Protein Trace H (Negative) Urine Glucose (UA) Negative (Negative) Urine Ketones 1+ H (Negative) Urine Blood Small H (Negative) Urine Nitrite Negative (Negative) Urine Bilirubin Negative (Negative) Urine Urobilinogen <2.0 (<2.0) mg/dL Ur Leukocyte Esterase Moderate H (Negative) Urine RBC 2 (0-5) /hpf Urine WBC 8 H (0-5) /hpf Ur Squamous Epith Cells 8 H (0-4) /hpf Urine Bacteria Many H (None) /hpf Hyaline Casts 3 H (0-2) /lpf Urine Mucus Rare H (None) /hpf - EKG Data EKG Comments: Sinus bradycardia Ventricular rate 53, MA 154, QRS 104, QTC 356. Disposition Clinical Impression: Nausea/vomiting in , Hypercalcemia, Hypophosphatemia Disposition: ADMITTED IP TO THIS HOSP Condition: Serious Instructions (If sedation given, give patient instructions): Acute Nausea and Vomiting in Children (ED) Is patient prescribed a controlled substance at d/c from ED?: No Referrals: Pérez Clark MD [Primary Care Provider] - 1-2 days Time of Disposition: 19:07
[2020-12-03 16:31] LABS: Basophils % (A) 1 %; Eosinophils # (A) 0.2 k/uL (0-0.7); Eosinophils % (A) 2 %; HCT 40.2 % (34.0-46.0); HGB 14.1 gm/dL (11.4-16.0); Lymphocytes # (A) 1.7 k/uL (1.0-4.8); Lymphocytes % (A) 21 %; MCH 29.4 pg (25.0-35.0); MCHC 35.1 g/dL (31.0-37.0); MCV 83.8 fL (80.0-100.0); Mean Platelet Volume 8.2; Monocytes # (A) 0.4 k/uL (0-1.0); Monocytes % (A) 5 %; Neutrophils # (A) 5.5 k/uL (1.3-7.7); Neutrophils % (A) 70 %; Platelet Count 262 k/uL (150-450); RDW 12.7 % (11.5-15.5); WBC 7.9 k/uL (3.8-10.6)
[2020-12-03 16:42] LABS: ALT 17 U/L (4-34); AST 23 U/L (14-36); African American GFR (CKD) >90 (>60 ml/min/1.73 sqM); Albumin 4.3 g/dL (3.5-5.0); Alkaline Phosphatase 43 U/L (38-126); Anion Gap 7 mmol/L; Blood Urea Nitrogen 15 mg/dL (7-17); Carbon Dioxide 26 mmol/L (22-30); Chloride 101 mmol/L (98-107); Glucose 91 mg/dL (74-99); Lipase 129 U/L (23-300); Non-African American GFR(CKD) 80 (>60 ml/min/1.73 sqM); Potassium 4.1 mmol/L (3.5-5.1); Sodium 134 mmol/L (137-145); Total Bilirubin 0.8 mg/dL (0.2-1.3); Total Protein 7.7 g/dL (6.3-8.2)
[2020-12-03 16:42] LABS: Appearance,Urine Cloudy (Clear); Bacteria,Urine Many /hpf; Bilirubin,Urine Negative (Negative); Blood,Urine Small (Negative); Color,Urine Yellow; Glucose,Urine (UA) Negative (Negative); Hyaline Casts,Urine 3 /lpf (0-2); Ketones,Urine 1+ (Negative); Leukocyte Esterase,Urine Moderate (Negative); Mucus,Urine Rare /hpf; Nitrite,Urine Negative (Negative); Protein,Urine Trace (Negative); RBC,Urine 2 /hpf (0-5); Specific Gravity,Urine 1.019 (1.001-1.035); Squamous Epithelial Cell,Urine 8 /hpf (0-4); Urobilinogen,Urine <2.0 mg/dL (<2.0); WBC,Urine 8 /hpf (0-5)
[2020-12-03 16:45] LABS: Calcium 13.2 mg/dL (8.4-10.2)
[2020-12-03] MEDS ORDERED: ACETAMINOPHEN TAB 325 MG TAB PO STA (16:47)
--- NOTE | 2020-12-03 17:02 | US ---
EXAMINATION TYPE: Transabdominal DATE OF EXAM: 12/03/2020 4:50 PM COMPARISON: NONE CLINICAL HISTORY: spotting, lower abd pain. EXAM PERFORMED: Transabdominal (TA) EXAM MEASUREMENTS: GESTATIONAL AGE / DATING Physician Established: ( 9 weeks/3 days) EDC: 07/05/2021 Dates by LMP: (9 weeks/3 days) EDC: 07/05/2021 Dates by First Scan: No previous this is first scan Dates by Current Scan for: (9 weeks/1 days) EDC: 07/07/2021 MATERNAL ANATOMY Uterus: 11.0 x 5.9 x 7.6 cm Right Ovary: 3.0 x 3.3 x 2.1 cm Left Ovary: 2.1 x 1.6 x 1.1 cm Post CDS / Adnexa: wnl Presence of free fluid: no Presence of corpus luteal cyst: no Presence of subchorionic bleed: no GESTATION / SURVEY CRL: 2.3 cm (9 weeks/1 days) Yolk Sac (normal less than 6mm): 4 mm Heart Rate: 169 bpm Rhythm: Normal IUP: Viable IUP Date of LMP: 09/28/2020 Beta HcG (if available): Not available at this time Viable IUP, measurements consistent with dates IMPRESSION: The ultrasound gestational age is 9 weeks and 1 day. No complicating process seen.
[2020-12-03 18:25] LABS: HCG,Quantitative Serum >225000.0 mIU/mL
[2020-12-03] MEDS ORDERED: NALOXONE 0.4 MG/ML 1 ML VIAL IV PRN (19:00)
[2020-12-03] MEDS ORDERED: ACETAMINOPHEN TAB 325 MG TAB PO PRN (19:00)
[2020-12-03] MEDS ORDERED: CEPHALEXIN 500 MG CAP PO STA (19:07)
[2020-12-03] MEDS: SODIUM CHLORIDE 0.9% 1,000 ML IV SCH (20:04)
[2020-12-04] MEDS: SODIUM CHLORIDE 0.9% 1,000 ML IV SCH (07:57)
[2020-12-04 11:49] VITALS: BP 149/83; PULSE 64; TEMP 98.9
[2020-12-04] MEDS ORDERED: PROCHLORPERAZINE INJ 10 MG/2 ML VIAL IVP PRN (13:15)
[2020-12-04] MEDS ORDERED: DEXTROSE 5%-0.9% NACL 1,000 ML IV SCH ×2 (13:15→15:45)
[2020-12-04 13:23] LABS: ALT 22 U/L (4-34); AST 30 U/L (14-36); African American GFR (CKD) 86 (>60 ml/min/1.73 sqM); Albumin 3.8 g/dL (3.5-5.0); Albumin/Globulin Ratio 1.2; Alkaline Phosphatase 41 U/L (38-126); Anion Gap 3 mmol/L; Blood Urea Nitrogen 15 mg/dL (7-17); Calcium 12.4 mg/dL (8.4-10.2); Carbon Dioxide 26 mmol/L (22-30); Chloride 106 mmol/L (98-107); Globulin 3.1 g/dL; Glucose 87 mg/dL (74-99); Non-African American GFR(CKD) 74 (>60 ml/min/1.73 sqM); Potassium 4.3 mmol/L (3.5-5.1); Sodium 135 mmol/L (137-145); Total Bilirubin 0.6 mg/dL (0.2-1.3); Total Protein 6.9 g/dL (6.3-8.2)
[2020-12-04] MEDS ORDERED: LABETALOL 200 MG TAB PO SCH (13:30)
[2020-12-04] MEDS ORDERED: METOCLOPRAMIDE 5 MG/ML 2 ML VIAL IVP PRN (13:31)
[2020-12-04 13:41] VITALS: BMI 28.1
[2020-12-04] MEDS ORDERED: Rhogam IMMUNE GLOBULIN 1,500 UNIT/1 ML IM ONE (16:41)
--- NOTE | 2020-12-04 16:48 | P.OBCN ---
History of Present Illness Consult date: 12/04/20 Reason for consult: other (Hyperemesis gravidarum) Chief complaint: Hyperemesis gravidarum History of present illness: 30-year-old presents at 9 weeks and 1 day complaining of nausea and vomiting for the last 3 weeks. She was just nauseous until she stopped taking her famotidine at home, then she started vomiting. She says she lost about 15 pounds the last 3 weeks. She presented to the hospital and has been on IV fluids. She was diagnosed with possible urinary tract infection placed on antibiotics. Urine culture is pending. She also did have some hypercalcemia likely due to dehydration. She has had a few doses of Reglan as well. She had Last 3 meals down, has not had any antiemetics since before lunch, over 3 hours ago. Patient feels a lot better. She was having small amount of dark brown spotting. Ultrasound showed a 9 week 1 day viable intrauterine with a heart rate of 169. Her blood type is O- so she will require RhoGAM. Review of Systems All systems: negative Constitutional: Denies chills, Denies fever Eyes: denies blurred vision, denies pain Ears, nose, mouth and throat: Denies headache, Denies sore throat Cardiovascular: Denies chest pain, Denies shortness of breath Respiratory: Denies cough Gastrointestinal: Denies abdominal pain, Denies diarrhea, Denies nausea, Denies vomiting Genitourinary: Denies dysuria, Denies hematuria Musculoskeletal: Denies myalgias Integumentary: Denies pruritus, Denies rash Neurological: Denies numbness, Denies weakness Psychiatric: Denies anxiety, Denies depression Endocrine: Denies fatigue, Denies weight change Past Medical History Past Medical History: Asthma, Hypertension Additional Past Medical History / Comment(s): kidney stones History of Any Multi-Drug Resistant Organisms: None Reported Additional Past Surgical History / Comment(s): wisdom teeth Past Anesthesia/Blood Transfusion Reactions: No Reported Reaction Past Psychological History: Anxiety, Depression Smoking Status: Never smoker Past Alcohol Use History: Occasional Past Drug Use History: None Reported - Past Family History Mother Family Medical History: Cancer, Hypertension Additional Family Medical History / Comment(s): Renal Cancer, Breast Cancer, Depression Father Family Medical History: Hypertension Additional Family Medical History / Comment(s): Multiple Sclerosis Brother(s) Family Medical History: Hypertension Additional Family Medical History / Comment(s): Depression Sister(s) Additional Family Medical History / Comment(s): Bipolar Medications and Allergies Home Medications Medication Instructions Recorded Confirmed Type DULoxetine HCL [Cymbalta] 30 mg PO HS 06/17/20 12/03/20 History Labetalol [Trandate] 200 mg PO BID 12/03/20 12/03/20 History Iux-Ndkr-Fwscz Acid 1 cap PO HS 12/03/20 12/03/20 History [-U Capsule (formulary)] Allergies Allergy/AdvReac Type Severity Reaction Status Date / Time lactose Allergy Abdominal Verified 12/03/20 17:54 Pain Penicillins Allergy Rash/Hives Verified 12/03/20 17:54 shellfish derived [Shellfish] Allergy Unknown Verified 12/03/20 17:54 valsartan AdvReac Chest Pain Verified 12/03/20 17:54 Exam Osteopathic Statement: *. No significant issues noted on an osteopathic structural exam other than those noted in the History and Physical/Consult. Vital Signs Temp Pulse Pulse Resp BP BP Pulse Ox 12/04/20 11:22 98.9 F 64 18 149/83 97 12/04/20 05:08 99.0 F 69 18 123/73 98 12/03/20 21:18 98.9 F 58 L 18 130/81 100 12/03/20 20:12 98 F 77 18 135/78 98 Intake and Output 12/04/20 12/04/20 12/04/20 06:59 14:59 22:59 Intake Total 425 Balance 425 Intake: Oral 425 Other: Voiding Method Toilet Toilet # Voids 2 Weight 88.904 kg Heart: Regular rate and rhythm Lungs: Clear to auscultation bilaterally Abdomen: Soft, nontender Extremities: Negative Homans sign Results Result Diagrams: 12/03/20 16:09 12/04/20 12:51 Abnormal Lab Results - Last 24 Hours (Table) 12/03/20 12/03/20 12/03/20 Range/Units 16:09 16:09 16:13 Sodium 134 L (137-145) mmol/L Calcium 13.2 H* (8.4-10.2) mg/dL Phosphorus 2.4 L (2.5-4.5) mg/dL Urine Appearance Cloudy H (Clear) Urine Protein Trace H (Negative) Urine Ketones 1+ H (Negative) Urine Blood Small H (Negative) Ur Leukocyte Esterase Moderate H (Negative) Urine WBC 8 H (0-5) /hpf Ur Squamous Epith Cells 8 H (0-4) /hpf Urine Bacteria Many H (None) /hpf Hyaline Casts 3 H (0-2) /lpf Urine Mucus Rare H (None) /hpf 12/04/20 Range/Units 12:51 Sodium 135 L (137-145) mmol/L Calcium 12.4 H (8.4-10.2) mg/dL Phosphorus (2.5-4.5) mg/dL Urine Appearance (Clear) Urine Protein (Negative) Urine Ketones (Negative) Urine Blood (Negative) Ur Leukocyte Esterase (Negative) Urine WBC (0-5) /hpf Ur Squamous Epith Cells (0-4) /hpf Urine Bacteria (None) /hpf Hyaline Casts (0-2) /lpf Urine Mucus (None) /hpf Microbiology - Last 24 Hours (Table) 12/03/20 17:23 Genital Culture - Preliminary Cervix 12/03/20 16:13 Urine Culture - Preliminary Urine,Voided Assessment and Plan (1) Nausea/vomiting in Current Visit: Yes Status: Acute Code(s): O21.9 - VOMITING OF , UNSPECIFIED SNOMED Code(s): 62658266 (2) Acid reflux Current Visit: Yes Status: Acute Code(s): K21.9 - GASTRO-ESOPHAGEAL REFLUX DISEASE WITHOUT ESOPHAGITIS SNOMED Code(s): 724790328 (3) Hypertension Current Visit: Yes Status: Acute Code(s): I10 - ESSENTIAL (PRIMARY) HYPERTENSION SNOMED Code(s): 62901786 (4) 9 weeks gestation of Current Visit: Yes Status: Acute Code(s): Z3A.09 - 9 WEEKS GESTATION OF SNOMED Code(s): 519069 Plan: 1. The problems it seemed to start when she stopped her famotidine at home. Famotidine is a category B, we discussed risks and benefits and decided that she should start retaking that medication. 2. Continue labetalol 200 mg twice a day 3. She has an appointment with Dr. Jed Stevens on 12/10/2020. I advised her that if she does start to feel more nausea and vomiting despite the Pepcid she could call the office if she needed some Reglan. 4. Discuss case with Dr. Garrett who agrees that she should be ready for discharge and will prescribe Keflex for her possible UTI. I did advise her to call the office Sunday to get results from this urine culture.
[2020-12-04] MEDS ORDERED: DULoxetine HCL 30 MG CAPSULE.DR PO SCH (21:00)
[2020-12-04] MEDS ORDERED: PRENATAL VIT-IRON-FOLIC ACID 1 EACH CAP PO SCH (21:00)
--- NOTE | 2020-12-04 21:01 | P.HPIM ---
History of Present Illness H&P Date: 12/04/20 Chief Complaint: Nausea vomiting History of presenting complaint: This is a pleasant 30-year-old patient who follows with Dr. Clark. Patient was diagnosed in June of this year with essential hypertension, kidney stones and also has anxiety depression all of which are controlled. Patient now 8 weeks . Has been having nausea through the last 8 weeks. The last 3 weeks especially she's been having increasing nausea and dry heaves more so in the last 1 week. Unable to keep anything down decided to come in. She lost about 10-15 pounds. Patient is scheduled to see her cartographic technician Dr. Fernández. She was started on IV fluids here. Review of systems: GEN.: Tired EYES: None HEENT: Dry mouth NECK: None RESPIRATORY: None CARDIOVASCULAR: None GASTROINTESTINAL: None GENITOURINARY: None MUSCULOSKELETAL: None LYMPHATICS: None HEMATOLOGICAL: None PSYCHIATRY: None NEUROLOGICAL: None Past medical history to include: Asthma, hypertension, kidney stones, anxiety depression Social history: Does not smoke or drink alcohol. Homemaker. Physical examination: VITAL SIGNS: 98.6, 98, 18, 120/81, 97% room air GENERAL: BMI 28.1, sitting up in bed, slightly tired. EYES: Pupils equal. Conjunctiva normal. HEENT: External appearance of nose and ears normal, oral cavity grossly normal. NECK: JVD not raised; masses not palpable. HEART: First and second heart sounds are normal; no edema. LUNGS: Respiratory rate normal; clear to auscultation. ABDOMEN: Soft, nontender, liver spleen not palpable, no masses palpable. PSYCH: Alert and oriented x3; mood and affect normal. NEUROLOGICAL: Cranial nerves grossly intact; no facial asymmetry, power and sensation grossly intact. LYMPHATICS: No lymph nodes palpable in the axilla and neck INVESTIGATIONS, reviewed in the clinical context: White count 7.9 hemoglobin 14.1 platelets 262 potassium 4.1 bun 15 creatinine 0.96 Calcium 13.2 and repeat 12.4 [place] 2[place] [address] UA positive for leukoesterase WBCs, 7 epithelial cells and bacteria ultrasound-viable fetus with gestational age of 9 weeks and 1 day intrauterine Assessment: -Hyperemesis gravidarum uncontrolled, with first -Essential hypertension -Anxiety depression, controlled -Kidney stones -Hypercalcemia likely from dehydration. This can be further worked up with PCP as an outpatient. After getting hydrated here. My dictation be sent to Dr. Clark -9 weeks of intrauterine , first -Possible asymptomatic bacteriuria Plan: Patient started on IV fluids. Been given Reglan for nausea vomiting. IV Ancef for the UTI. Consultation made to OB GEN. Home medications resumed. Care was discussed with the patient. Patient will follow with Dr. Clark as an outpatient and I will repeat labs done for calcium phosphorus and further workup as needed. copy of dictation to dr clark Past Medical History Past Medical History: Asthma, Hypertension Additional Past Medical History / Comment(s): kidney stones History of Any Multi-Drug Resistant Organisms: None Reported Additional Past Surgical History / Comment(s): wisdom teeth Past Anesthesia/Blood Transfusion Reactions: No Reported Reaction Past Psychological History: Anxiety, Depression Smoking Status: Never smoker Past Alcohol Use History: Occasional Past Drug Use History: None Reported - Past Family History Mother Family Medical History: Cancer, Hypertension Additional Family Medical History / Comment(s): Renal Cancer, Breast Cancer, Depression Father Family Medical History: Hypertension Additional Family Medical History / Comment(s): Multiple Sclerosis Brother(s) Family Medical History: Hypertension Additional Family Medical History / Comment(s): Depression Sister(s) Additional Family Medical History / Comment(s): Bipolar Medications and Allergies Home Medications Medication Instructions Recorded Confirmed Type DULoxetine HCL [Cymbalta] 30 mg PO HS 06/17/20 12/03/20 History Labetalol [Trandate] 200 mg PO BID 12/03/20 12/03/20 History Kju-Uvnm-Ptnyf Acid 1 cap PO HS 12/03/20 12/03/20 History [-U Capsule (formulary)] Cephalexin [Keflex] 250 mg PO Q8HR #15 capsule 12/04/20 Rx Metoclopramide HCl [Reglan] 5 mg PO Q8H PRN #15 tablet 12/04/20 Rx Allergies Allergy/AdvReac Type Severity Reaction Status Date / Time lactose Allergy Abdominal Verified 12/03/20 17:54 Pain Penicillins Allergy Rash/Hives Verified 12/03/20 17:54 shellfish derived [Shellfish] Allergy Unknown Verified 12/03/20 17:54 valsartan AdvReac Chest Pain Verified 12/03/20 17:54 Physical Exam Vitals: Vital Signs Temp Pulse Pulse Resp BP BP Pulse Ox 12/04/20 11:22 98.9 F 64 18 149/83 97 12/04/20 05:08 99.0 F 69 18 123/73 98 12/03/20 21:18 98.9 F 58 L 18 130/81 100 12/03/20 20:12 98 F 77 18 135/78 98 12/03/20 15:19 98.6 F 98 18 120/81 97 Intake and Output 12/03/20 12/04/20 12/04/20 22:59 06:59 14:59 Intake Total 425 Balance 425 Intake: Oral 425 Other: Voiding Method Toilet Toilet # Voids 2 Weight 88.904 kg Results CBC & Chem 7: 12/03/20 16:09 12/04/20 12:51 Labs: Abnormal Lab Results - Last 24 Hours (Table) 12/03/20 12/03/20 12/03/20 Range/Units 16:09 16:09 16:13 Sodium 134 L (137-145) mmol/L Calcium 13.2 H* (8.4-10.2) mg/dL Phosphorus 2.4 L (2.5-4.5) mg/dL Urine Appearance Cloudy H (Clear) Urine Protein Trace H (Negative) Urine Ketones 1+ H (Negative) Urine Blood Small H (Negative) Ur Leukocyte Esterase Moderate H (Negative) Urine WBC 8 H (0-5) /hpf Ur Squamous Epith Cells 8 H (0-4) /hpf Urine Bacteria Many H (None) /hpf Hyaline Casts 3 H (0-2) /lpf Urine Mucus Rare H (None) /hpf Microbiology - Last 24 Hours (Table) 12/03/20 17:23 Genital Culture - Preliminary Cervix 12/03/20 16:13 Urine Culture - Preliminary Urine,Voided Thrombosis Risk Factor Assmnt - Choose All That Apply Any of the Below Risk Factors Present?: Yes Each Factor Represents 1 point: Obesity (BMI >25), or Other Risk Factors: No Other congenital or acquired thrombophilia - If yes, enter type in comment: No Thrombosis Risk Factor Assessment Total Risk Factor Score: 2 Thrombosis Risk Factor Assessment Level: Low Risk
--- NOTE | 2020-12-04 21:04 | P.DS ---
Providers Date of admission: 12/03/20 18:50 Expected date of discharge: 12/04/20 Attending physician: Moreno Garrett Consults: 12/04/20 13:16 Consult Physician Routine Consulting Provider: Mitali Cota Consult Reason/Comments: Hyper emesis/Hypercalcemia Do you want consulting provider notified?: Yes [facility]: Chief Complaint: Nausea vomiting History of presenting complaint: This is a pleasant 30-year-old patient who follows with Dr. Clark. Patient was diagnosed in June of this year with essential hypertension, kidney stones and also has anxiety depression all of which are controlled. Patient now 8 weeks . Has been having nausea through the last 8 weeks. The last 3 weeks especially she's been having increasing nausea and dry heaves more so in the last 1 week. Unable to keep anything down decided to come in. She lost about 10-15 pounds. 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 Fernández. She was started on IV fluids here. Data patient was seen by Dr. Cota. Patient responded well to Reglan IV fluids. Did tolerate her diet. Did receive IV Ancef. Patient be discharged home on oral Keflex. Dr. Cota called me that patient stable for discharge from our standpoint. We'll have the patient follow up with her PCP regarding her calcium and low phosphorus. Some of the hypercalcemia is from dehydration. Consultation: Dr. Cota-OB GEN Past medical history to include: Asthma, hypertension, kidney stones, anxiety depression Social history: Does not smoke or drink alcohol. Homemaker. Physical examination: VITAL SIGNS: 99, 69, 18, 123/73, 98% room air GENERAL: BMI 28.1, sitting up in bed, slightly tired. EYES: Pupils equal. Conjunctiva normal. HEENT: External appearance of nose and ears normal, oral cavity grossly normal. NECK: JVD not raised; masses not palpable. HEART: First and second heart sounds are normal; no edema. LUNGS: Respiratory rate normal; clear to auscultation. ABDOMEN: Soft, nontender, liver spleen not palpable, no masses palpable. PSYCH: Alert and oriented x3; mood and affect normal. INVESTIGATIONS, reviewed in the clinical context: White count 7.9 hemoglobin 14.1 platelets 262 potassium 4.1 bun 15 creatinine 0.96 Calcium 13.2 and repeat 12.4 [place] [address] UA positive for leukoesterase WBCs, 7 epithelial cells and bacteria ultrasound-viable fetus with gestational age of 9 weeks and 1 day intrauterine Assessment: -Hyperemesis gravidarum uncontrolled, with first -Essential hypertension -Anxiety depression, controlled -Kidney stones -Hypercalcemia likely from dehydration. This can be further worked up with PCP as an outpatient. After getting hydrated here. My dictation be sent to Dr. Clark -9 weeks of intrauterine , first -Possible asymptomatic bacteriuria Disposition: Home copy of dictation to dr clark Patient Condition at Discharge: Stable Plan - Discharge Summary Discharge Rx Participant: No New Discharge Prescriptions: New Cephalexin [Keflex] 250 mg PO Q8HR #15 capsule Metoclopramide HCl [Reglan] 5 mg PO Q8H PRN #15 tablet PRN Reason: Nausea Continue DULoxetine HCL [Cymbalta] 30 mg PO HS Dal-Lglp-Aqhtf Acid [-U Capsule (formulary)] 1 cap PO HS Labetalol [Trandate] 200 mg PO BID Discharge Medication List DULoxetine HCL [Cymbalta] 30 mg PO HS 06/17/20 [History] Labetalol [Trandate] 200 mg PO BID 12/03/20 [History] Irs-Qhlp-Uvzbx Acid [-U Capsule (formulary)] 1 cap PO HS 12/03/20 [History] Cephalexin [Keflex] 250 mg PO Q8HR #15 capsule 12/04/20 [Rx] Metoclopramide HCl [Reglan] 5 mg PO Q8H PRN #15 tablet 12/04/20 [Rx] Follow up Appointment(s)/Referral(s): Jed Stevens DO [Doctor of Osteopathic Medicine] - 12/10/20 1:30 pm (Appt. as previously scheduled. ) Pérez Clark MD [Primary Care Provider] - 1-2 days Patient Instructions/Handouts: Cephalexin (By mouth), Metoclopramide (By mout h), Acute Nausea and Vomiting (DC) Activity/Diet/Wound Care/Special Instructions: Dr. Stevens's office should follow-up on urine culture. If you require antibiotics after discharge, their office will notify you. Discharge Disposition: HOME SELF-CARE
[2020-12-06 14:13] LABS: C. trachomatis,PCR Negative (Neg,Equiv); Chlamydia trachomatis Source Cervix; N. gonorrhoeae,PCR Negative (Neg,Equiv); Neisseria Source Cervix
== END 2020-12-04 18:41 | disposition home or self-care (01) | DRG 832 ==
LOC: EC 15:12 → 5NMEDONC 18:50
PROVIDERS: ADMIT Hospitalist; ATTEND Hospitalist
PROC: 3E0234Z Introduction of Serum, Toxoid and Vaccine into Muscle, Percutaneous Approach (ICD-10-PCS; principal; 2020-12-04)
DX: O21.1 Hyperemesis gravidarum with metabolic disturbance (principal); O10.911 Unspecified pre-existing hypertension complicating pregnancy, first trimester; O99.611 Diseases of the digestive system complicating pregnancy, first trimester; O99.511 Diseases of the respiratory system complicating pregnancy, first trimester; J45.909 Unspecified asthma, uncomplicated; O99.341 Other mental disorders complicating pregnancy, first trimester; F41.9 Anxiety disorder, unspecified; F32.9 Major depressive disorder, single episode, unspecified; O99.281 Endocrine, nutritional and metabolic diseases complicating pregnancy, first trimester; E83.39 Other disorders of phosphorus metabolism; E86.0 Dehydration; E83.52 Hypercalcemia; K21.9 Gastro-esophageal reflux disease without esophagitis; Z87.442 Personal history of urinary calculi; Z80.3 Family history of malignant neoplasm of breast; Z80.51 Family history of malignant neoplasm of kidney; Z81.8 Family history of other mental and behavioral disorders; Z82.0 Family history of epilepsy and other diseases of the nervous system; Z82.49 Family history of ischemic heart disease and other diseases of the circulatory system; Z79.899 Other long term (current) drug therapy; Z3A.09 9 weeks gestation of pregnancy
CPT/HCPCS: 36415; 76801; 80053; 81001; 83690; 84100; 84702; 85025; 86850; 86900; 86901; 87070; 87086; 87491; 87591; 93005; 96361; 96374; 96375; 99285

== ENCOUNTER 2021-01-27 09:43 | Emergency (ER) | payer BC, OTHER ==
[2021-01-27 09:49] VITALS: RESP 18; TEMP 98.1
[2021-01-27] MEDS ORDERED: ONDANSETRON 4 MG/2 ML VIAL IVP STA (10:01)
[2021-01-27] MEDS ORDERED: SODIUM CHLORIDE 0.9% 1,000 ML IV STA (10:01)
[2021-01-27] MEDS ORDERED: LABETALOL 200 MG TAB PO STA (10:02)
[2021-01-27] MEDS ORDERED: ACETAMINOPHEN TAB 500 MG TAB PO STA (10:02)
--- NOTE | 2021-01-27 10:55 | ED ---
General Adult HPI - General Chief complaint: Abdominal Pain Stated complaint: 17 Wks preg/bleeding Time Seen by Provider: 01/27/21 09:52 Source: patient, family Mode of arrival: ambulatory Limitations: no limitations - History of Present Illness Initial comments: 30-year-old female who is 17 weeks , presents to the emergency department today for evaluation of lower abdominal pain, constipation, bloody stool. Patient states that for the last week she has been having some issues with constipation. States last night she had a tiny amount of stool output. States through the night she was experiencing significant pain to her lower abdomen. States this morning she did have a little more stool output but there was also blood present in the toilet. States when she wiped there was a small blood clot on the toilet paper. States she is unsure if this is coming from the rectum or the vagina. She states she has been nauseated and has had an episode of vomiting today. States she has been having issues with nausea throughout the . She does follow with Dr. Stevens for obstetric care. Has had previous normal ultrasound. States that she does have a heart tone monitor and heart tones were in the 140s today. Patient denies any recent rash, fever, chills, cough, shortness of breath, chest pain, back pain, numbness, tingling, dizziness, weakness, hematuria, dysuria, urinary urgency, urinary frequency, headache, visual changes, or any other complaints. - Related Data Home Medications Medication Instructions Recorded Confirmed Labetalol [Trandate] 200 mg PO BID 12/03/20 01/27/21 Aspirin EC [Ecotrin Low Dose] 81 mg PO DAILY 01/27/21 01/27/21 Doxylamine Succinate [Unisom] 12.5 mg PO HS 01/27/21 01/27/21 Famotidine 40 mg PO DAILY 01/27/21 01/27/21 Ondansetron [Zofran] 4 mg PO Q8H PRN 01/27/21 01/27/21 Previous Rx's Medication Instructions Recorded Cephalexin [Keflex] 500 mg PO BID #14 cap 01/27/21 Allergies Allergy/AdvReac Type Severity Reaction Status Date / Time lactose Allergy Abdominal Verified 01/27/21 11:11 Pain Penicillins Allergy Rash/Hives Verified 01/27/21 11:11 shellfish derived [Shellfish] Allergy Unknown Verified 01/27/21 11:11 valsartan AdvReac Chest Pain Verified 01/27/21 11:11 Review of Systems ROS Statement: Those systems with pertinent positive or pertinent negative responses have been documented in the HPI. ROS Other: All systems not noted in ROS Statement are negative. Past Medical History Past Medical History: Asthma, Hypertension Additional Past Medical History / Comment(s): kidney stones History of Any Multi-Drug Resistant Organisms: None Reported Additional Past Surgical History / Comment(s): wisdom teeth Past Anesthesia/Blood Transfusion Reactions: No Reported Reaction Past Psychological History: Anxiety, Depression Smoking Status: Never smoker Past Alcohol Use History: Occasional Past Drug Use History: None Reported - Past Family History Mother Family Medical History: Cancer, Hypertension Additional Family Medical History / Comment(s): Renal Cancer, Breast Cancer, Depression Father Family Medical History: Hypertension Additional Family Medical History / Comment(s): Multiple Sclerosis Brother(s) Family Medical History: Hypertension Additional Family Medical History / Comment(s): Depression Sister(s) Additional Family Medical History / Comment(s): Bipolar General Exam Limitations: no limitations General appearance: alert, in no apparent distress, other (This is a well- developed, well-nourished adult female patient in no acute distress. Vital signs upon presentation are 98.1F, pulse 105, respirations 18, blood pressure 135/89, pulse ox 98% on room air.) Eye exam: Present: normal appearance, PERRL, EOMI. Absent: scleral icterus, conjunctival injection, periorbital swelling ENT exam: Present: normal exam, normal oropharynx, mucous membranes moist Respiratory exam: Present: normal lung sounds bilaterally. Absent: respiratory distress, wheezes, rales, rhonchi, stridor Cardiovascular Exam: Present: regular rate, normal rhythm, normal heart sounds. Absent: systolic murmur, diastolic murmur, rubs, gallop, clicks GI/Abdominal exam: Present: soft, tenderness (Lower abdominal), normal bowel vivek nds. Absent: distended, guarding, rebound, rigid Neurological exam: Present: alert, oriented X3, CN II-XII intact Psychiatric exam: Present: normal affect, normal mood Skin exam: Present: warm, dry, intact, normal color. Absent: rash Course Vital Signs 01/27/21 01/27/2101/27/21 09:45 10:49 12:00 Temperature 98.1 F Pulse Rate 105 H 68 66 Respiratory 18 18 18 Rate Blood Pressure 135/89 127/66 127/77 O2 Sat by Pulse 98 100 Oximetry Medical Decision Making - Medical Decision Making 30-year-old female patient presented to the emergency department today for evaluation of lower abdominal pain, constipation, rectal bleeding today. Physical examination did reveal lower abdominal tenderness. She is 17 weeks , G1, P0. Labs reviewed and did reveal white blood cell count at 12.1. Creatinine 1.13. Calcium 13.6. Her analysis did show some bacteriuria and a small amount of white blood cells. Patient was discussed with my attending Dr. Quevedo, we added phosphorus and IPTH level. Added thyroid ultrasound which was negative. Case discussed with medicine who feels that this can be worked up outpatient. Case discussed with patient's OBGYN Dr. Stevens who will see the patient outpatient today. Patient informed of all results. She is instructed to proceed directly to Dr. Stevens's office for further evaluation and managment. We also did give an enema, she did have stool output, reports mild improvement in symptoms. She agrees with this plan. - Lab Data Result diagrams: 01/27/21 10:46 01/27/21 10:46 Lab Results 01/27/21 01/27/21 01/27/21 Range/Units 10:46 10:46 10:46 WBC 12.1 H (3.8-10.6) k/uL RBC 3.94 (3.80-5.40) m/uL Hgb 11.9 (11.4-16.0) gm/dL Hct 33.8 L (34.0-46.0) % MCV 85.9 (80.0-100.0) fL MCH 30.2 (25.0-35.0) pg MCHC 35.1 (31.0-37.0) g/dL RDW 13.4 (11.5-15.5) % Plt Count 249 (150-450) k/uL MPV 8.1 Neutrophils % 81 % Lymphocytes % 13 % Monocytes % 3 % Eosinophils % 2 % Basophils % 0 % Neutrophils # 9.8 H (1.3-7.7) k/uL Lymphocytes # 1.6 (1.0-4.8) k/uL Monocytes # 0.4 (0-1.0) k/uL Eosinophils # 0.3 (0-0.7) k/uL Basophils # 0.0 (0-0.2) k/uL PT (9.0-12.0) sec INR (<1.2) APTT (22.0-30.0) sec Sodium 134 L (137-145) mmol/L Potassium 4.1 (3.5-5.1) mmol/L Chloride 101 (98-107) mmol/L Carbon Dioxide 26 (22-30) mmol/L Anion Gap 7 mmol/L BUN 13 (7-17) mg/dL Creatinine 1.13 H (0.52-1.04) mg/dL Est GFR (CKD-EPI)AfAm 76 (>60 ml/min/1.73 sqM) Est GFR (CKD-EPI)NonAf 66 (>60 ml/min/1.73 sqM) Glucose 95 (74-99) mg/dL Calcium 13.6 H* (8.4-10.2) mg/dL Phosphorus (2.5-4.5) mg/dL Magnesium (1.6-2.3) mg/dL Total Bilirubin 0.4 (0.2-1.3) mg/dL AST 22 (14-36) U/L ALT 18 (4-34) U/L Alkaline Phosphatase 52 (38-126) U/L Total Protein 7.2 (6.3-8.2) g/dL Albumin 4.1 (3.5-5.0) g/dL Amylase 73 (30-110) U/L Lipase 56 (23-300) U/L TSH (0.465-4.680) mIU/L Urine Color Yellow Urine Appearance Cloudy H (Clear) Urine pH 6.5 (5.0-8.0) Ur Specific [place] 1.015 (1.001-1.035) Urine Protein Negative (Negative) Urine Glucose (UA) Negative (Negative) Urine Ketones Negative (Negative) Urine Blood Negative (Negative) Urine Nitrite Negative (Negative) Urine Bilirubin Negative (Negative) Urine Urobilinogen <2.0 (<2.0) mg/dL Ur Leukocyte Esterase Moderate H (Negative) Urine RBC 2 (0-5) /hpf Urine WBC 12 H (0-5) /hpf Ur Squamous Epith Cells 1 (0-4) /hpf Urine Bacteria Moderate H (None) /hpf Urine Mucus Rare H (None) /hpf 01/27/21 01/27/21 Range/Units 10:46 10:46 WBC (3.8-10.6) k/uL RBC (3.80-5.40) m/uL Hgb (11.4-16.0) gm/dL Hct (34.0-46.0) % MCV (80.0-100.0) fL MCH (25.0-35.0) pg MCHC (31.0-37.0) g/dL RDW (11.5-15.5) % Plt Count (150-450) k/uL MPV Neutrophils % % Lymphocytes % % Monocytes % % Eosinophils % % Basophils % % Neutrophils # (1.3-7.7) k/uL Lymphocytes # (1.0-4.8) k/uL Monocytes # (0-1.0) k/uL Eosinophils # (0-0.7) k/uL Basophils # (0-0.2) k/uL PT 9.7 (9.0-12.0) sec INR 0.9 (<1.2) APTT 20.9 L (22.0-30.0) sec Sodium (137-145) mmol/L Potassium (3.5-5.1) mmol/L Chloride (98-107) mmol/L Carbon Dioxide (22-30) mmol/L Anion Gap mmol/L BUN (7-17) mg/dL Creatinine (0.52-1.04) mg/dL Est GFR (CKD-EPI)AfAm (>60 ml/min/1.73 sqM) Est GFR (CKD-EPI)NonAf (>60 ml/min/1.73 sqM) Glucose (74-99) mg/dL Calcium (8.4-10.2) mg/dL Phosphorus 3.0 (2.5-4.5) mg/dL Magnesium 1.7 (1.6-2.3) mg/dL Total Bilirubin (0.2-1.3) mg/dL AST (14-36) U/L ALT (4-34) U/L Alkaline Phosphatase (38-126) U/L Total Protein (6.3-8.2) g/dL Albumin (3.5-5.0) g/dL Amylase (30-110) U/L Lipase (23-300) U/L TSH 1.660 (0.465-4.680) mIU/L Urine Color Urine Appearance (Clear) Urine pH (5.0-8.0) Ur Specific [place] (1.001-1.035) Urine Protein (Negative) Urine Glucose (UA) (Negative) Urine Ketones (Negative) Urine Blood (Negative) Urine Nitrite (Negative) Urine Bilirubin (Negative) Urine Urobilinogen (<2.0) mg/dL Ur Leukocyte Esterase (Negative) Urine RBC (0-5) /hpf Urine WBC (0-5) /hpf Ur Squamous Epith Cells (0-4) /hpf Urine Bacteria (None) /hpf Urine Mucus (None) /hpf - Radiology Data Radiology results: report reviewed, image reviewed Ultrasound of the fetus was obtained. Report was reviewed in its entirety. Impression by Dr. Costello shows single intrauterine gestation estimated at 16 weeks 5 days gestation based on the current ultrasound measurements. Cardiac activity measures 142. Placenta previa. Incidental note of uterine fibroid anterior fundal uterus. Ultrasound of the thyroid was obtained. Report is reviewed in its entirety. Impression by Dr. Costello shows portions of the thyroid with [place] reappeared unremarkable. No suspicious masses to suggest abnormal by ultrasound. Disposition Clinical Impression: Abdominal pain, Hypercalcemia, Bacteriuria during Disposition: HOME SELF-CARE Condition: Good Instructions (If sedation given, give patient instructions): Abdominal Pain in (ED), Hypercalcemia (ED), Urinary Tract Infection in (ED) Additional Instructions: Once discharged to proceed directly to Dr. Stevens's office for further evaluation. Prescriptions: Cephalexin [Keflex] 500 mg PO BID #14 cap Is patient prescribed a controlled substance at d/c from ED?: No Referrals: Pérez Clark MD [Primary Care Provider] - 1-2 days Jed Stevens DO [Family Provider] - 1-2 days Time of Disposition: 13:56
[2021-01-27 11:02] LABS: Basophils % (A) 0 %; Eosinophils # (A) 0.3 k/uL (0-0.7); Eosinophils % (A) 2 %; HCT 33.8 % (34.0-46.0); HGB 11.9 gm/dL (11.4-16.0); Lymphocytes # (A) 1.6 k/uL (1.0-4.8); Lymphocytes % (A) 13 %; MCH 30.2 pg (25.0-35.0); MCHC 35.1 g/dL (31.0-37.0); MCV 85.9 fL (80.0-100.0); Mean Platelet Volume 8.1; Monocytes # (A) 0.4 k/uL (0-1.0); Monocytes % (A) 3 %; Neutrophils # (A) 9.8 k/uL (1.3-7.7); Neutrophils % (A) 81 %; Platelet Count 249 k/uL (150-450); RBC 3.94 m/uL (3.80-5.40); RDW 13.4 % (11.5-15.5); WBC 12.1 k/uL (3.8-10.6)
[2021-01-27 11:11] LABS: Appearance,Urine Cloudy (Clear); Bacteria,Urine Moderate /hpf; Bilirubin,Urine Negative (Negative); Blood,Urine Negative (Negative); Color,Urine Yellow; Glucose,Urine (UA) Negative (Negative); Ketones,Urine Negative (Negative); Leukocyte Esterase,Urine Moderate (Negative); Mucus,Urine Rare /hpf; Nitrite,Urine Negative (Negative); PH, Urine 6.5 (5.0-8.0); Protein,Urine Negative (Negative); RBC,Urine 2 /hpf (0-5); Specific Gravity,Urine 1.015 (1.001-1.035); Squamous Epithelial Cell,Urine 1 /hpf (0-4); Urobilinogen,Urine <2.0 mg/dL (<2.0); WBC,Urine 12 /hpf (0-5)
[2021-01-27 11:12] LABS: Albumin 4.1 g/dL (3.5-5.0); Potassium 4.1 mmol/L (3.5-5.1); Total Bilirubin 0.4 mg/dL (0.2-1.3); Total Protein 7.2 g/dL (6.3-8.2)
[2021-01-27 11:26] LABS: INR 0.9 (<1.2); Prothrombin Time 9.7 sec (9.0-12.0)
[2021-01-27 11:27] LABS: Partial Thromboplastin Time 20.9 sec (22.0-30.0)
[2021-01-27 11:35] LABS: Calcium 13.6 mg/dL (8.4-10.2)
--- NOTE | 2021-01-27 11:41 | US ---
EXAMINATION TYPE: US OB >= 14 wk fetus DATE OF EXAM: 01/27/2021 COMPARISON: US CLINICAL HISTORY: abdominal pain; Rectal bleeding noted after bowel movement with constipation histor y in ; ; HTN; uterine TECHNIQUE: Transabdominal (TA) GESTATIONAL AGE / DATING Physician Established: (17 weeks/2 days) EDC: 07/05/2021 Dates by LMP: (17 weeks/2 days) EDC: 07/05/2021 Dates by First Scan: (17 weeks/0 days) EDC: 07/07/2021 Dates by Current Scan: (16 weeks/5 days) EDC: 07/09/2021 Beta HCG (if available): NA SURVEY IUP: single PLACENTA: fundal posterior; uterine fibroid seen superiorly and size = 3.7 x 4.5 x 3.5cm PREVIA: Low Lying placenta XIN: 14.0 cm Normal CERVICAL LENGTH (transabdominal: norm > 3.0cm): 3.3 cm BIOMETRY PRESENTATION: Vertex LIE: Longitudinal BPD: 3.57 cm 17 weeks / 0 days HC: 13.16 cm 16 weeks / 5 days AC: 10.89 cm 16 weeks / 5 days FL: 2.07 cm 16 weeks / 1 day ESTIMATED WEIGHT IN GRAMS: 159.5 grams ESTIMATED WEIGHT IN LBS/OZ: 0 lbs. 6 oz. WEIGHT PERCENTAGE BASED ON ESTABLISHED DATES: 9.0% HC/AC: 1.21 Normal FL/AC: 19.0 Normal HEART RATE: 142 bpm RHYTHM: Normal Single, Live IUP,16 weeks/5 days, EDC: 07/09/2021, HR142 bpm; placenta previa is noted; uterine fibro id is imaged. IMPRESSION: 1. Single intrauterine gestation estimated at 16 weeks 5 days gestation based on the current ultrasou nd measurements. Cardiac activity measures 142 bpm. 2. Placenta previa 3. Incidental note of uterine fibroid anterior fundal uterus
[2021-01-27] MEDS ORDERED: cefTRIAXone IN SWFI 1,000 MG/10 ML SYRINGE IVP STA (12:01)
[2021-01-27 12:28] LABS: Magnesium 1.7 mg/dL (1.6-2.3)
--- NOTE | 2021-01-27 12:48 | US ---
EXAMINATION TYPE: US thyroid st tissue head/neck DATE OF EXAM: 01/27/2021 COMPARISON: NONE CLINICAL HISTORY: Hypercalcemia. elevated calcium and ANGLESMITH HELPER wanted me to image parathyroid. Imaging of parathyroid area produced no obvious parathyroid gland. IMPRESSION: Portions of the thyroid within the [id number]. Unremarkable. 2. No suspicious masses to suggest abnormal parathyroid by ultrasound. If additional evaluation would be of benefit, nuclear medicine parathyroid scan could be performed to evaluate for abnormal parathy roid.
[2021-01-27 14:05] VITALS: BP 104/57; PULSE 77
== END 2021-01-27 14:06 | disposition home or self-care (01) ==
LOC: EC 09:43
DX: O26.892 Other specified pregnancy related conditions, second trimester (principal); R10.30 Lower abdominal pain, unspecified; O99.282 Endocrine, nutritional and metabolic diseases complicating pregnancy, second trimester; E83.52 Hypercalcemia; O99.891 Other specified diseases and conditions complicating pregnancy; R82.71 Bacteriuria; O16.2 Unspecified maternal hypertension, second trimester; Z79.899 Other long term (current) drug therapy; Z88.0 Allergy status to penicillin; Z88.8 Allergy status to other drugs, medicaments and biological substances; Z91.013 Allergy to seafood; Z91.018 Allergy to other foods; Z3A.17 17 weeks gestation of pregnancy
CPT/HCPCS: 36415; 80053; 84443; 82150; 83690; 83735; 84100; 85025; 85610; 85730; 81001; 83970; 87086; 76805; 76536; 99284; 96374; 96375; 96361; J2405; J0696

== ENCOUNTER 2021-01-27 15:39 | Outpatient (CLI) | payer BC ==
--- NOTE | 2021-01-27 17:09 | US ---
EXAMINATION TYPE: US abd limited kidneys/bladder DATE OF EXAM: 01/27/2021 COMPARISON: US CLINICAL HISTORY: kidney,gull bladder, pancreas . patient with elevated calcium level; prior left renal stones per patient; constipation/rectal bleeding in . EXAM MEASUREMENTS: Liver Length: 16.3 cm Gallbladder Wall: 0.1 cm CBD: 0.4 cm Right Kidney: 11.2 x 5.2 x 3.9 cm Left Kidney: 11.0 x 5.1 x 5.4 cm Post Void Volume: not assessed on inpatient Pancreas: hyperechoic and homogeneous Liver: wnl Gallbladder: wnl CBD: wnl Right Kidney: No hydronephrosis or masses seen Left Kidney: couple of renal calcifications; lower pole hyperechoic focus with shadowing is noted = 0.5 x 0.5 x 0.3cm and mid pole hyperechoic focus is seen = 0.4 x 0.6 x 0.2cm Bladder: wnl Bilateral Jets Seen yes, right ureteral jet was more prominent than left side IMPRESSION: Nonobstructing left renal calculi. No evidence of renal mass or obstruction. Normal urinary bladder.
[2021-01-27 18:02] VITALS: BP 124/52; PULSE 62; RESP 16; TEMP 98.1
== END 2021-01-27 18:02 | disposition home or self-care (01) ==
LOC: FBPOP 15:39
PROVIDERS: ATTEND Obstetrics & Gynecology
DX: O99.280 Endocrine, nutritional and metabolic diseases complicating pregnancy, unspecified trimester (principal); N20.0 Calculus of kidney; K59.00 Constipation, unspecified; Z3A.00 Weeks of gestation of pregnancy not specified
CPT/HCPCS: 76705; 76770; 93005; 99213

== ENCOUNTER → 2021-03-09 | Outpatient (CLI) | payer BC ==
--- NOTE | 2021-03-09 10:18 | US ---
EXAMINATION TYPE: US abdomen complete DATE OF EXAM: 03/09/2021 COMPARISON: NONE CLINICAL HISTORY: R94.5 Abnormal liver function R94.4 abnormal renal function. elevated liver enzymes , history of kidney stones, possible splenomegaly, patient is 22 weeks with history of fibro id EXAM MEASUREMENTS: Liver Length: 14.4 cm Gallbladder Wall: 0.2 cm CBD: 0.5 cm Spleen: 12.0 cm Right Kidney: 10.5 x 4.5 x 3.8 cm Left Kidney: 10.6 x 4.9 x 4.3 cm Pancreas: Tail obscured by overlying bowel gas Liver: wnl Gallbladder: no evidence of stones Evidence for sonographic Valera's sign: no CBD: wnl Spleen: isoechoic area = 1.5 x 1.4 x 1.6cm, accessory spleen Right Kidney: prominent collecting system Left Kidney: prominent collecting system, dense echogenic foci noted with largest = 0.6cm Upper IVC: Obscured by overlying bowel gas Abd Aorta: wnl incidental finding: fibroid visualized superior to uterus = 7.4 x 6.9 x 8.6cm The liver is homogenous. The intrahepatic portion of the IVC and proximal abdominal aorta are within normal limits. There is no evidence of cholelithiasis. Common bile duct is unremarkable. The visu alized portions of the pancreas are homogenous. The spleen is unremarkable. No renal lesions are se en. IMPRESSION: 1. Prominence of the renal collecting systems. 2. Nonobstructing calculus left kidney. 3. Large exophytic fibroid superior to the uterus.
== END | disposition home or self-care (01) ==
LOC: RADUSWWP 09:29
PROVIDERS: ATTEND Internal Medicine Hematology & Oncology
DX: N20.0 Calculus of kidney (principal); D25.9 Leiomyoma of uterus, unspecified; Z88.0 Allergy status to penicillin; Z88.8 Allergy status to other drugs, medicaments and biological substances
CPT/HCPCS: 76700

== ENCOUNTER → 2021-04-15 | Outpatient (CLI) | payer BC ==
--- NOTE | 2021-04-17 09:27 | CT ---
EXAMINATION TYPE: CT ChestAbdPelvis w con DATE OF EXAM: 04/15/2021 COMPARISON: CT abdomen and pelvis dated 06/05/2020 HISTORY: Pt 28wks . Possible hodgkin lymphoma vs sarcoid. Hypercalcemia, abnormal labs. CT DLP: 924.7 mGycm Automated exposure control for dose reduction was used. CONTRAST: CT scan of the chest, abdomen and pelvis is performed with Oral Contrast and with IV Contrast, patien t injected with 100 mL of Isovue M300. FINDINGS: Chest CT: The lungs are clear of consolidative, interstitial or masslike density.There is no pleural effusion, pleural thickening or pneumothorax. The great vessels the chest are normal and there is no mediastinal, hilar or axillary adenopathy. The osseous structures and soft tissues are unremarkable. The osseous structures are intact. CT abdomen and pelvis. The gallbladder is unremarkable there is no gallstones, wall thickening or obstruction. There is no b iliary ductal dilatation. There is no focal mass in the liver pancreas spleen or adrenal glands. There is one 1 to 2 mm nonobstructing right renal calculus and 2 2 mm nonobstructing left renal calcu li. There is mild hydronephrosis bilaterally right greater than left likely secondary the patient's p regnancy. Uterus is 21 cm in transverse dimension and is markedly enlarged secondary to a intrauterine pregnanc y. The placenta appears unremarkable. There is a 9.7 x 5.7 mass adjacent to the anterior aspect of the uterus is most likely represents a p edunculated uterine fibroid. The bowel gas pattern is nonspecific and there is no evidence of obstruction. There is no free intrap eritoneal air or fluid. There is a 3.3 x 1.8 cm simple appearing pineal region on the right. The osseous structures are intact. IMPRESSION: 1. No abnormality seen in chest. 2. Markedly enlarged uterus secondary to intrauterine . There is a probable pedunculated [place] rine fibroid anterior to the left midline. 3. Multiple tiny nonobstructing renal calculi bilaterally and bilateral hydronephrosis likely seconda ry to patient's .
== END | disposition home or self-care (01) ==
LOC: RADCTMAIN 13:48
PROVIDERS: ATTEND Internal Medicine Hematology & Oncology
DX: O26.833 Pregnancy related renal disease, third trimester (principal); E83.52 Hypercalcemia; Z3A.28 28 weeks gestation of pregnancy
CPT/HCPCS: 71260; 74177; Q9967 ×2

== ENCOUNTER 2021-06-14 05:55 | Inpatient (IN) | payer BC, OTHER ==
[2021-06-13 09:18] VITALS: BMI 32.5
--- NOTE | 2021-06-13 16:59 | P.HPOB ---
History of Present Illness H&P Date: 06/13/21 Chief Complaint: Intrauterine at term breech: Hypercalcemia Patient is a 30-year-old at 39 weeks gestation who ryes for primary section due to breech presentation on ultrasound. Risks/benefits/alternatives to this procedure were discussed with patient in detail and all questions were answered for her prior to proceeding to the operative room. This has been, complicated by persistent nausea and vomiting as well as severe hypercalcemia. She began having hypercalcemic symptoms very early in the that was believed to be from hyper emesis. Initially that was the thought process and she was started on Zofran and then Reglan for the nausea. When this persisted and hypercalcemia became severe she was referred both maternal medicine and hematology. A workup for hypoparathyroidism as well as other sources of hypercalcemia was done including concern over potential metastatic disease. Thus far we have been unable to find any explicit reason for her hypercalcemia and over the last few weeks of the she has undergone IV hydration therapy which has reduced her calcium levels to only slightly elevated. At this time of the section she is doing well. NSTs have been done through the latter part of the as well and have been normal. All questions are answered for her prior to proceeding to the operating room. Past Medical History Past Medical History: Asthma, GERD/Reflux, Hypertension Additional Past Medical History / Comment(s): kidney stones, migraines, no rx since 01/2021 for BP, sports induced asthma, hemorrhoid, hypercalcemia History of Any Multi-Drug Resistant Organisms: None Reported Additional Past Surgical History / Comment(s): wisdom teeth Past Anesthesia/Blood Transfusion Reactions: Motion Sickness Smoking Status: Never smoker - Past Family History Mother Family Medical History: Cancer Additional Family Medical History / Comment(s): Renal Cancer, Breast Cancer Father Family Medical History: Hypertension Additional Family Medical History / Comment(s): Multiple Sclerosis Brother(s) Family Medical History: Hypertension Additional Family Medical History / Comment(s): Depression Sister(s) Additional Family Medical History / Comment(s): Bipolar Medications and Allergies Home Medications Medication Instructions Recorded Confirmed Type Aspirin EC [Ecotrin Low Dose] 81 mg PO DAILY 01/27/21 06/13/21 History Famotidine 40 mg PO DAILY 01/27/21 06/13/21 History Ondansetron [Zofran] 4 mg PO Q8H PRN 01/27/21 06/13/21 History Docusate [Colace] 100 mg PO BID 06/13/21 06/13/21 History Tamsulosin HCl [Flomax] 0.4 mg PO DAILY PRN 06/13/21 06/13/21 History Allergies Allergy/AdvReac Type Severity Reaction Status Date / Time lactose Allergy Abdominal Verified 06/13/21 09:07 Pain nickel Allergy Rash/Hives Verified 06/13/21 09:07 Penicillins Allergy Unknown Verified 06/13/21 09:07 Childhood shellfish derived [Shellfish] Allergy Vomiting Verified 06/13/21 09:07 valsartan AdvReac Chest Pain Verified 06/13/21 09:07 dust Allergy congestion Uncoded 06/13/21 09:07 sun expsure Allergy Rash/Hives Uncoded 06/13/21 09:07 Exam Osteopathic Statement: *. No significant issues noted on an osteopathic structural exam other than those noted in the History and Physical/Consult. Intake and Output 06/13/21 06/13/21 06/13/21 06:59 14:59 22:59 Other: Weight 102.965 kg - OBG Physical Exam Breast: both: normal (no masses) Abdomen: bowel sounds normal, no diffuse tenderness, no bruit present, no guarding noted, no hepatomegaly, no splenomegaly, no mass Vulva: both: normal Vagina: normal moisture, no discharge Cervix: no lesion, no discharge Uterus: normal size, normal contour Adnexa: both: normal Anus/Rectum: normal perianal skin, no rectal mass, no hemorrhoids, heme negative
[2021-06-14] MEDS ORDERED: CITRIC ACID-SODIUM CITRATE 15 ML CUP PO ONE (06:08)
[2021-06-14 06:30] LABS: Basophils # (A) 0.1 k/uL (0-0.2); Basophils % (A) 1 %; Eosinophils # (A) 0.1 k/uL (0-0.7); Eosinophils % (A) 1 %; HCT 31.3 % (34.0-46.0); HGB 10.9 gm/dL (11.4-16.0); Lymphocytes # (A) 2.6 k/uL (1.0-4.8); Lymphocytes % (A) 25 %; MCH 29.8 pg (25.0-35.0); MCHC 34.7 g/dL (31.0-37.0); MCV 85.9 fL (80.0-100.0); Mean Platelet Volume 9.3; Monocytes # (A) 0.4 k/uL (0-1.0); Monocytes % (A) 4 %; Neutrophils % (A) 68 %; Platelet Count 248 k/uL (150-450); RBC 3.65 m/uL (3.80-5.40); RDW 13.5 % (11.5-15.5); WBC 10.3 k/uL (3.8-10.6)
[2021-06-14] MEDS ORDERED: CLINDAMYCIN 900 MG in DEXTROSE 5% IN WATER 50 ML IVPB ONE ×2 (06:30)
[2021-06-14] MEDS ORDERED: GENTAMICIN 410 MG in SODIUM CHLORIDE 0.9% 100 ML IVPB ONE (06:30)
[2021-06-14] MEDS ORDERED: LACTATED RINGERS 1,000 ML IV SCH (07:45)
[2021-06-14] MEDS ORDERED: MORPHINE SULFATE (PF) 0.3 MG/0.3 ML SYR ONE ×2 (07:53→19:48)
[2021-06-14] MEDS ORDERED: OXYTOCIN 30 UNITS/500 ML NS BAG IV ONE ×2 (07:53→19:48)
[2021-06-14] MEDS ORDERED: ePHEDrine SULFATE/0.9% NACL/PF 50 MG/5 ML SYRINGE IV ONE ×2 (07:53→19:48)
[2021-06-14] MEDS ORDERED: ONDANSETRON 4 MG/2 ML VIAL ONE ×2 (07:53→19:48)
[2021-06-14] MEDS ORDERED: KETOROLAC 15 MG/ML 1 ML VIAL ONE ×2 (07:53→19:48)
[2021-06-14] MEDS ORDERED: NALBUPHINE 10 MG/ML (1 ML AMP) ONE (07:53)
[2021-06-14] MEDS ORDERED: NALOXONE 0.4 MG/ML 1 ML VIAL IV PRN (08:44)
[2021-06-14] MEDS ORDERED: diphenhydrAMINE 50 MG/ML 1 ML VIAL IVP PRN ×2 (08:44)
[2021-06-14] MEDS ORDERED: diphenhydrAMINE 25 MG CAP PO PRN (08:44)
[2021-06-14] MEDS ORDERED: HYDROmorphone 2 MG TAB PO PRN ×2 (08:44)
[2021-06-14] MEDS ORDERED: ONDANSETRON 4 MG/2 ML VIAL IVP PRN (08:44)
[2021-06-14] MEDS ORDERED: diphenhydrAMINE 50 MG CAP PO PRN (08:44)
[2021-06-14] MEDS ORDERED: ZOLPIDEM 5 MG TAB PO PRN (08:44)
[2021-06-14] MEDS ORDERED: METOCLOPRAMIDE 5 MG/ML 2 ML VIAL IVP PRN (08:44)
--- NOTE | 2021-06-14 08:52 | P.OP ---
Date of Procedure: 06/14/21 Preoperative Diagnosis: Intrauterine at term: Unstable lie: Hypercalcemia: Family planning Postoperative Diagnosis: Same Procedure(s) Performed: Primary low transverse section with bilateral partial salpingectomy Anesthesia: spinal Surgeon: Jed Stevens Edge Inker Heels #1: Marvel Nix Estimated Blood Loss (ml): 855 IV fluids (ml): 1,000 Urine output (ml): 100 Pathology: other (Placenta) Condition: stable Disposition: floor Operative Findings: Female scores of 9 and 9 at one and 5 minutes Sabrina weight was 7 lbs. 0 oz. baby was noted to be in semi-vertex presentation head was present but was off angle and was brought into the incision line without difficulty and delivered from vertex Description of Procedure: Patient was taken to the operating suite where a spinal anesthetic was found be adequate. She was prepped and draped in normal sterile fashion and placed in dorsal supine position with leftward tilt. Initially a Pfannenstiel skin incision was made and this incision was then carried through to underlying layer of the fascia with the second knife. Fascia was then nicked in the midline and this opening was extended laterally with Valdovinos scissors. Superior and inferior aspect of this incision were then grasped tented up and bluntly and sharply dissected off the rectus muscles. Rectus muscles were then divided midline and blunt dissection the peritoneum was performed. This opening was then extended superiorly and inferiorly with good visualization of both bowel bladder. Bladder blade was then placed a bladder flap identified. It was entered sharply with Metzenbaum scissors and then fully developed across face uterus and the bladder was then bluntly dissected out of the operative field. Knife was then used to incise uterus and this opening was fully developed with a hemostat and then extended bluntly. Head was noted to be vertex but was off angle was brought fully down into the incision line from a very unstable lie. Once head was delivered into the incision mouth nares were bulb suctioned and the anterior posterior shoulders were then easily delivered. Umbilical was then clamped cut usual fashion an nursery personnel was present and assumed care. Placenta was then delivered intact Pitocin was added to the IV. Uterus was then exteriorized and cleared of clots and debris. A large approximately 5 cm pedunculated fibroid was noted off the left fundal region it was left in situ as it had very large pedicle and risk of bleeding was too high. Multiple other fibroids are noted within the uterine wall but none of them are larger than 3 cm. Uterus was then closed with 0 Vicryl suture in running fashion in 2 layers. Once excellent hemostasis was obtained blood and debris was suctioned the posterior cul-de-sac. Fallopian tubes after verification that she was completed her family planning desire permanent sterilization were identified and grasped with hemostat 3 cm from uterine cornu. Window was created in the mesosalpinx bilaterally with Bovie cautery and 2 proximal to distal 2-0 silk sutures were placed with the intervening segment excised and tips were cauterized. Uterus was then noel nserted into the abdomen and the peritoneal layer was reapproximated with 0 Vicryl suture. Fascial layer was closed with 0 Vicryl suture. One layer of 3-0 Vicryl was placed in deep subcuticular tissues to reapproximate skin and close the space. Skin was then closed with 3-0 Vicryl subcuticular. Sponge, lap, needle counts were all correct 2. Patient was then taken to the recovery room in stable and satisfactory condition.
[2021-06-14] MEDS: LACTATED RINGERS 1,000 ML IV SCH ×3 (09:04→19:56)
[2021-06-14] MEDS ORDERED: OXYTOCIN 30 UNITS/500 ML NS 30 UNIT in SALINE 1 500ML.BAG IV SCH (09:15)
[2021-06-14] MEDS ORDERED: fentaNYL (PF) 50 MCG/ML 5 ML AMP ONE (11:10)
[2021-06-14] MEDS ORDERED: SODIUM CHLORIDE 0.9% 100 ML BAG ONE (11:10)
[2021-06-14] MEDS ORDERED: ROPIVACAINE 5MG/ML 20ML VIAL ONE (11:10)
[2021-06-14] MEDS: KETOROLAC 15 MG/ML 1 ML VIAL IVP SCH ×2 (14:22→20:23)
[2021-06-14] MEDS ORDERED: Rhogam IMMUNE GLOBULIN 1,500 UNIT/1 ML IM ONE (14:23)
[2021-06-14] MEDS: SENNOSIDES-DOCUSATE SODIUM 1 EACH TAB PO SCH (19:56)
[2021-06-15] MEDS: KETOROLAC 15 MG/ML 1 ML VIAL IVP SCH ×2 (01:43→08:19)
[2021-06-15 06:53] LABS: ALT 10 U/L (4-34); AST 25 U/L (14-36); African American GFR (CKD) >90 (>60 ml/min/1.73 sqM); Albumin 2.5 g/dL (3.5-5.0); Alkaline Phosphatase 71 U/L (38-126); Anion Gap 2 mmol/L; Blood Urea Nitrogen 12 mg/dL (7-17); Calcium 10.9 mg/dL (8.4-10.2); Carbon Dioxide 26 mmol/L (22-30); Chloride 104 mmol/L (98-107); Glucose 83 mg/dL (74-99); Non-African American GFR(CKD) 81 (>60 ml/min/1.73 sqM); Potassium 4.6 mmol/L (3.5-5.1); Sodium 132 mmol/L (137-145); Total Bilirubin 0.2 mg/dL (0.2-1.3); Total Protein 5.1 g/dL (6.3-8.2)
--- NOTE | 2021-06-15 07:28 | P.PN ---
Progress Note - Text Progress Note Date: 06/15/21 Patient POD 1 from . Patient received spinal anesthesia with duramorph for post operative pain management. Patient tolerated the procedure well and pain is well controlled. No headaches, N/V, F/C. Patient is able to ambulate without difficulty. All questions answered.
[2021-06-15 07:40] LABS: Basophils % (A) 0 %; Eosinophils # (A) 0.1 k/uL (0-0.7); Eosinophils % (A) 1 %; HCT 25.6 % (34.0-46.0); Lymphocytes % (A) 18 %; MCH 28.9 pg (25.0-35.0); MCHC 33.7 g/dL (31.0-37.0); MCV 85.8 fL (80.0-100.0); Mean Platelet Volume 9.4; Monocytes # (A) 0.5 k/uL (0-1.0); Monocytes % (A) 4 %; Neutrophils # (A) 8.2 k/uL (1.3-7.7); Neutrophils % (A) 76 %; Platelet Count 217 k/uL (150-450); RBC 2.99 m/uL (3.80-5.40); RDW 13.8 % (11.5-15.5); WBC 10.9 k/uL (3.8-10.6)
[2021-06-15 07:41] LABS: HGB 8.6 gm/dL (11.4-16.0)
[2021-06-15] MEDS: SENNOSIDES-DOCUSATE SODIUM 1 EACH TAB PO SCH ×2 (08:19→20:27)
--- NOTE | 2021-06-15 10:47 | P.PNOBGPC ---
Subjective - Subjective Principal diagnosis: Post operative day 1 Interval history: Page overall appears well. She is able to ambulate and is voiding. She is tolerating her diet as far. We'll plan continue conservative care today. Her calcium is noted to be 10.9. Her Humalog this morning is 8.6 and she shows no signs or symptoms of hypovolemia we'll consult hematology who is been managing her fluid volumes for her calcium just to verify there is no other treatments needed and to see whether not any other alternatives will be required with her drop in hemoglobin potentially affecting her hypercalcemia. Otherwise plan for continue current care. Patient reports: Reports appetite normal, Reports voiding normally, Reports pain well controlled, Reports ambulating normally : doing well Objective - Vital Signs Latest vital signs: Vital Signs Temp Pulse Resp BP Pulse Ox 06/15/21 08:00 98.2 F 86 19 133/97 06/15/21 04:00 98.9 F 70 15 129/82 06/15/21 00:00 98.7 F 82 15 138/90 95 06/14/21 19:50 98.3 F 74 15 133/88 96 06/14/21 16:00 98.7 F 80 18 144/78 98 06/14/21 11:56 98.4 F 65 16 135/72 06/14/21 10:55 98.3 F 61 16 130/83 Intake and Output 06/14/21 06/15/21 06/15/21 22:59 06:59 14:59 Intake Total 600 Output Total 1050 500 Balance -450 -500 Intake: Oral 600 Output: Urine 1050 500 Other: Voiding Method Toilet Toilet # Voids 1 1 - Exam Lungs: bilateral: normal Chest: Normal S1, Normal S2 Extremities: Present: normal Abdomen: Present: normal appearance, soft. Absent: distention, tenderness Incision: Present: normal, dry, intact Uterus: Present: normal, firm - Labs Labs: Abnormal Lab Results - Last 24 Hours (Table) 06/15/21 06/15/21 Range/Units 06:09 06:09 WBC 10.9 H (3.8-10.6) k/uL RBC 2.99 L (3.80-5.40) m/uL Hgb 8.6 L D (11.4-16.0) gm/dL Hct 25.6 L (34.0-46.0) % Neutrophils # 8.2 H (1.3-7.7) k/uL Sodium 132 L (137-145) mmol/L Calcium 10.9 H (8.4-10.2) mg/dL Total Protein 5.1 L (6.3-8.2) g/dL Albumin 2.5 L (3.5-5.0) g/dL
[2021-06-15] MEDS: ACETAMINOPHEN TAB 500 MG TAB PO PRN (11:21)
[2021-06-15] MEDS: IBUPROFEN 600 MG TAB PO PRN ×2 (14:11→20:27)
[2021-06-15 23:47] VITALS: RESP 16
[2021-06-16] MEDS: ACETAMINOPHEN TAB 500 MG TAB PO PRN ×3 (00:15→12:49)
[2021-06-16] MEDS: IBUPROFEN 600 MG TAB PO PRN ×2 (02:30→10:44)
[2021-06-16 08:41] VITALS: BP 143/93; PULSE 75; TEMP 98.6
--- NOTE | 2021-06-16 09:34 | P.DS ---
Providers Date of admission: 06/14/21 05:55 Expected date of discharge: 06/16/21 Attending physician: Jed Stevens Consults: 06/15/21 10:45 Consult Physician Routine Consulting Provider: Bertha Multani Consult Reason/Comments: hypercalcemia Do you want consulting provider notified?: Yes Primary care physician: Stated None Hospital Course: Patient is doing very well this morning. She is ambulating, voiding and tolerating her diet. She is had a bowel movement area her vital signs are stable and afebrile. Heart regular, lungs clear, extremities without pain. She has an appointment coming up with her motorcycle racer, but will call them after she gets home and see if we need to see her sooner but overall she is feeling well and she denies any signs or symptoms of hypocalcemia at this time. Prescriptions for [place] and Motrin are forwarded to the pharmacy. All other questions are answered and discharge instructions were thoroughly reviewed. On physical exam heart regular, lungs clear, extremities without pain. Abdomen is soft uterus is firm lochia is reported light. Incision is clean dry and intact. Assessment postop day 2 with section and hypercalcemia. Plan as above. As a precaution preeclamptic discussion was held as she has had a couple of blood pressures were minimally elevated signs or symptoms and what to watch out for, but she was a chronic hypertensive prior to the and did do well without any medication or elevation in blood pressure during the therefore we'll continue close observational care. Patient Condition at Discharge: Good Plan - Discharge Summary Discharge Rx Participant: Yes New Discharge Prescriptions: New HYDROcodone/APAP 5-325MG [[place] 5-325] 1 tab PO Q4HR PRN #30 tab PRN Reason: Pain Ibuprofen [Motrin] 600 mg PO Q6HR PRN #30 tab PRN Reason: Pain No Action Ondansetron [Zofran] 4 mg PO Q8H PRN PRN Reason: Nausea Famotidine 40 mg PO DAILY Aspirin EC [Ecotrin Low Dose] 81 mg PO DAILY Docusate [Colace] 100 mg PO BID Tamsulosin HCl [Flomax] 0.4 mg PO DAILY PRN PRN Reason: kidney stones Discharge Medication List Aspirin EC [Ecotrin Low Dose] 81 mg PO DAILY 01/27/21 [History] Famotidine 40 mg PO DAILY 01/27/21 [History] Ondansetron [Zofran] 4 mg PO Q8H PRN 01/27/21 [History] Docusate [Colace] 100 mg PO BID 06/13/21 [History] Tamsulosin HCl [Flomax] 0.4 mg PO DAILY PRN 06/13/21 [History] HYDROcodone/APAP 5-325MG [[place] 5-325] 1 tab PO Q4HR PRN #30 tab 06/16/21 [Rx] Ibuprofen [Motrin] 600 mg PO Q6HR PRN #30 tab 06/16/21 [Rx] Follow up Appointment(s)/Referral(s): Jed Stevens DO [Doctor of Osteopathic Medicine] - 07/27/21 3:00 pm (06-24-2021 02:00) Activity/Diet/Wound Care/Special Instructions: Heavy lifting, limit stairs and driving, and pelvic rest. If any high temperatures, heavy bleeding, or severe pain call my office. She will keep the incision clean and dry [place] one 2 times per day with gentle soap and water pat dry. She is going to call her motorcycle racer in the next day or so and verify no other immediate treatments are needed. Otherwise she is feeling well and hasn't bled with hematology for her normal scheduled appointment coming up. Discharge Disposition: HOME SELF-CARE
--- NOTE | 2021-06-16 14:53 | P.CONS ---
History of Present Illness - Reason for Consult Consult date: 06/16/21 hypercalcemia Requesting physician: Jed Stevens - Chief Complaint hypercalcemia - History of Present Illness Pt is a very pleasant female who had a normal delivery of a healthy baby girl, 36 weeks. She has been being seen by Hem?onc for the last 4 months re: hypercalcemia. Hydration has been given to keep levels down. She will experience constipation and nausea when her levels are up. She has history of nephrolithiasis for which she follows with Urology and she recently started seeing Endocrinology. She is doing well, anxious to go home. Review of Systems 10 point ROS is as stated in HPI Past Medical History Past Medical History: Asthma, GERD/Reflux, Hypertension Additional Past Medical History / Comment(s): kidney stones, migraines, no rx since 01/2021 for BP, sports induced asthma, hemorrhoid, hypercalcemia History of Any Multi-Drug Resistant Organisms: None Reported Additional Past Surgical History / Comment(s): wisdom teeth Past Anesthesia/Blood Transfusion Reactions: Motion Sickness Past Psychological History: Anxiety, Depression Smoking Status: Never smoker Past Alcohol Use History: None Reported Past Drug Use History: None Reported - Past Family History Mother Family Medical History: Cancer Additional Family Medical History / Comment(s): Renal Cancer, Breast Cancer Father Family Medical History: Hypertension Additional Family Medical History / Comment(s): Multiple Sclerosis Brother(s) Family Medical History: Hypertension Additional Family Medical History / Comment(s): Depression Sister(s) Additional Family Medical History / Comment(s): Bipolar Medications and Allergies Home Medications Medication Instructions Recorded Confirmed Type Aspirin EC [Ecotrin Low Dose] 81 mg PO DAILY 01/27/21 06/14/21 History Famotidine 40 mg PO DAILY 01/27/21 06/14/21 History Ondansetron [Zofran] 4 mg PO Q8H PRN 01/27/21 06/14/21 History Docusate [Colace] 100 mg PO BID 06/13/21 06/14/21 History Tamsulosin HCl [Flomax] 0.4 mg PO DAILY PRN 06/13/21 06/14/21 History HYDROcodone/APAP 5-325MG [[place] 1 tab PO Q4HR PRN #30 tab 06/16/21 Rx 5-325] Ibuprofen [Motrin] 600 mg PO Q6HR PRN #30 tab 06/16/21 Rx Allergies Allergy/AdvReac Type Severity Reaction Status Date / Time lactose Allergy Abdominal Verified 06/14/21 06:13 Pain nickel Allergy Rash/Hives Verified 06/14/21 06:13 Penicillins Allergy Unknown Verified 06/14/21 06:13 Childhood shellfish derived [Shellfish] Allergy Vomiting Verified 06/14/21 06:13 valsartan AdvReac Chest Pain Verified 06/14/21 06:13 dust Allergy congestion Uncoded 06/13/21 09:07 sun expsure Allergy Rash/Hives Uncoded 06/13/21 09:07 Physical Exam Vitals: Vital Signs Temp Pulse Resp BP Pulse Ox 06/16/21 08:00 98.6 F 75 16 143/93 06/16/21 04:00 98.1 F 88 16 130/82 06/15/21 20:00 98.8 F 80 16 128/68 06/15/21 16:00 98.2 F 87 19 136/86 96 Intake and Output 06/15/21 06/16/21 06/16/21 22:59 06:59 14:59 Other: Voiding Method Toilet Toilet # Voids 1 3 2 - Constitutional General appearance: average body habitus, cooperative, no acute distress - EENT Eyes: anicteric sclerae, EOMI ENT: hearing grossly normal - Neck Neck: no lymphadenopathy - Respiratory Respiratory: bilateral: CTA - Cardiovascular Rhythm: regular Heart sounds: normal: S1, S2 Abnormal Heart Sounds: no systolic murmur, no diastolic murmur, no rub, no S3 Gallop, no S4 Gallop, no click, no other foot Peripheral Edema: bilateral: Trace - Gastrointestinal General gastrointestinal: no absent bowel sounds, no decreased bowel sounds, no distended, no hepatomegaly, no hyperactive bowel sounds, normal bowel sounds, no organomegaly, no rigid, no scaphoid, soft, no splenomegaly, no tenderness, no umbilical hernia, no ventral hernia - Integumentary Integumentary: normal - Neurologic Neurologic: CNII-XII intact - Musculoskeletal Musculoskeletal: strength equal bilaterally - Psychiatric Psychiatric: A&O x's 3, appropriate affect, intact judgment & insight Results CBC & Chem 7: 06/15/21 06:09 06/15/21 06:09 CT scan - abdomen: report reviewed CT scan - chest: report reviewed CT scan - pelvis: report reviewed Assessment and Plan (1) Hypercalcemia Narrative/Plan: Pt has been followed outpt with hydration weekly dueing preg to keep levels down. Need to review ofc notes to what testing has been done. Will order any additional tests outpt, pt agrees with that plan. Ca++ 10.9. Will have her in ofc in the next 5 days to recheck and possibly give hydration Pt is asymtomatic at this time Status: Acute Code(s): E83.52 - HYPERCALCEMIA SNOMED Code(s): 25829473 Plan: Doctor attests: I performed a history and physical examination of this patient, developed impression and plan of care, discussed with dictator. I agree with dictators note, documented as a scribe.
== END 2021-06-16 13:30 | disposition home or self-care (01) | DRG 785 ==
LOC: 4FBP 05:55
PROVIDERS: ADMIT Obstetrics & Gynecology; ATTEND Obstetrics & Gynecology
PROC: 0UB70ZZ Excision of Bilateral Fallopian Tubes, Open Approach (ICD-10-PCS; 2021-06-14)
PROC: 10D00Z1 Extraction of Products of Conception, Low, Open Approach (ICD-10-PCS; principal; 2021-06-14 08:00)
DX: O32.0XX0 Maternal care for unstable lie, not applicable or unspecified (principal); Z3A.39 39 weeks gestation of pregnancy; Z37.0 Single live birth; O99.52 Diseases of the respiratory system complicating childbirth; F41.9 Anxiety disorder, unspecified; F32.9 Major depressive disorder, single episode, unspecified; G43.909 Migraine, unspecified, not intractable, without status migrainosus; K21.9 Gastro-esophageal reflux disease without esophagitis; Z79.82 Long term (current) use of aspirin; Z79.899 Other long term (current) drug therapy; Z80.3 Family history of malignant neoplasm of breast; Z80.51 Family history of malignant neoplasm of kidney; O99.284 Endocrine, nutritional and metabolic diseases complicating childbirth; O32.1XX0 Maternal care for breech presentation, not applicable or unspecified; Z81.8 Family history of other mental and behavioral disorders; K59.00 Constipation, unspecified; J45.909 Unspecified asthma, uncomplicated; E83.52 Hypercalcemia; Z82.0 Family history of epilepsy and other diseases of the nervous system; Z82.49 Family history of ischemic heart disease and other diseases of the circulatory system; Z87.442 Personal history of urinary calculi
CPT/HCPCS: 80053; 85025; 85461; 86850; 86900; 86901; 88302; 88307

== ENCOUNTER 2021-06-20 14:18 | Observation (INO) | payer BC, OTHER ==
[2021-06-20] MEDS ORDERED: hydrALAZINE HCL 20 MG/ML 1 ML VIAL IVP PRN (15:15)
[2021-06-20] MEDS ORDERED: MAGNESIUM SULFATE-WATER PMX 4 GM in WATER FOR INJECTION 1 100ML.BAG IVPB ONE (15:15)
[2021-06-20] MEDS ORDERED: LABETALOL 5 MG/ML VIAL MDV IVP PRN ×3 (15:15)
[2021-06-20 15:19] LABS: Basophils # (A) 0.1 k/uL (0-0.2); Basophils % (A) 1 %; Eosinophils # (A) 0.4 k/uL (0-0.7); Eosinophils % (A) 5 %; HCT 31.1 % (34.0-46.0); HGB 10.4 gm/dL (11.4-16.0); Lymphocytes # (A) 2.1 k/uL (1.0-4.8); Lymphocytes % (A) 25 %; MCH 28.9 pg (25.0-35.0); MCHC 33.3 g/dL (31.0-37.0); MCV 86.8 fL (80.0-100.0); Mean Platelet Volume 7.8; Monocytes # (A) 0.4 k/uL (0-1.0); Monocytes % (A) 5 %; Neutrophils # (A) 5.4 k/uL (1.3-7.7); Neutrophils % (A) 63 %; Platelet Count 349 k/uL (150-450); RBC 3.58 m/uL (3.80-5.40); WBC 8.6 k/uL (3.8-10.6)
[2021-06-20 15:29] LABS: Albumin 3.5 g/dL (3.5-5.0); Calcium 11.7 mg/dL (8.4-10.2); Total Bilirubin 0.2 mg/dL (0.2-1.3); Total Protein 6.5 g/dL (6.3-8.2); Uric Acid 7.3 mg/dL (3.7-7.4)
[2021-06-20] MEDS ORDERED: LABETALOL 200 MG TAB PO SCH (15:30)
[2021-06-20] MEDS: LACTATED RINGERS 1,000 ML IV SCH (15:42)
[2021-06-20] MEDS: MAGNESIUM SULFATE-WATER PMX 20 GM in WATER FOR INJECTION 1 500ML.BAG IV SCH (16:13)
--- NOTE | 2021-06-20 17:40 | P.HPOB ---
History of Present Illness H&P Date: 06/20/21 Chief Complaint: Hypertension status post delivery This patient is a pleasant 30-year-old 1 para 1 female who is status post a primary section by Dr. Stevens on June 14. Patient's was complicated by hypercalcemia for which she was seen hematology. Patient was discharged on postoperative day #2 and states that she was doing well but last evening she began checking her blood pressure and was found to be 168/111 and she repeat it this morning and had 164/112 and 152/106. She contacted my office and I asked her to come to the office for evaluation. Blood pressure in the office is 160/94 and therefore she was sent to labor and delivery for further evaluation. In talking to the patient, she reports that she was initially diagnosed with hypertension by Dr. Clark in 2015. She did have some lapse in care due to insurance issues until approximately 1-2 years ago when she reestablished with her primary care physician and was diagnosed w ith hypertension and treated. She states that this was of unknown etiology and considered to be a essential in nature. Dr. Stevens and hematology have also been following her for hypocalcemia. Patient upon presentation my office states that she's feeling well and denies headache or other symptomatology. Initial blood pressure on arrival to labor and delivery was 180/115 and 201/127. With oral and IV therapy her current blood pressure is 165/100. She's been taking Tylenol and Motrin for her postoperative pain. Review of Systems Constitutional: Reports as per HPI Past Medical History Past Medical History: Asthma, GERD/Reflux, Hypertension Additional Past Medical History / Comment(s): kidney stones, migraines, no rx since 01/2021 for BP, sports induced asthma, hemorrhoid, hypercalcemia History of Any Multi-Drug Resistant Organisms: None Reported Past Surgical History: Section Additional Past Surgical History / Comment(s): wisdom teeth Past Anesthesia/Blood Transfusion Reactions: No Reported Reaction Past Psychological History: Anxiety, Depression Smoking Status: Never smoker Past Alcohol Use History: None Reported Past Drug Use History: None Reported - Past Family History Mother Family Medical History: Cancer Additional Family Medical History / Comment(s): Renal Cancer, Breast Cancer Father Family Medical History: Hypertension Additional Family Medical History / Comment(s): Multiple Sclerosis Brother(s) Family Medical History: Hypertension Additional Family Medical History / Comment(s): Depression Sister(s) Additional Family Medical History / Comment(s): Bipolar Medications and Allergies Home Medications Medication Instructions Recorded Confirmed Type HYDROcodone/APAP 5-325MG [[place] 1 tab PO Q4HR PRN #30 tab 06/16/21 06/20/21 Rx 5-325] Ibuprofen [Motrin] 600 mg PO Q6HR PRN #30 tab 06/16/21 06/20/21 Rx Acetaminophen [Tylenol Extra 1,000 mg PO Q6HR 06/20/21 06/20/21 History Strength] Allergies Allergy/AdvReac Type Severity Reaction Status Date / Time lactose Allergy Abdominal Verified 06/20/21 14:42 Pain nickel Allergy Rash/Hives Verified 06/20/21 14:42 Penicillins Allergy Unknown Verified 06/20/21 14:42 Childhood shellfish derived [Shellfish] Allergy Vomiting Verified 06/20/21 14:42 valsartan AdvReac Chest Pain Verified 06/20/21 14:42 dust Allergy congestion Uncoded 06/20/21 14:42 sun expsure Allergy Rash/Hives Uncoded 06/20/21 14:42 Exam Vital Signs Temp Pulse Resp BP Pulse Ox 06/20/21 16:40 97.5 F L 76 16 177/109 96 Intake and Output 06/20/21 06/20/21 06/20/21 06:59 14:59 22:59 Other: Weight 91.172 kg 91.172 kg Results Result Diagrams: 06/20/21 15:04 06/20/21 15:04 Abnormal Lab Results - Last 24 Hours (Table) 06/20/21 06/20/21 Range/Units 15:04 15:04 RBC 3.58 L (3.80-5.40) m/uL Hgb 10.4 L (11.4-16.0) gm/dL Hct 31.1 L (34.0-46.0) % BUN 26 H (7-17) mg/dL Calcium 11.7 H (8.4-10.2) mg/dL Lactate Dehydrogenase 634 H (313-618) U/L Assessment and Plan Assessment: This is a pleasant 30-year-old 1 para 1 female approximately 6 days with significant hypertension. Patient does have a history of chronic hypertension the past however was not on any medications during the . Preeclampsia labs are significant for elevation of her uric acid. Due to her status we are unable to reliably check her urine for protein. Plan at this time is to treat with magnesium sulfate for at least 24 hours, antihypertensive medications, and I am also going to consult medicine for management of the hypertension and hypercalcemia because this appears to be somewhat chronic in nature. I did have a discussion with the patient and her the understand our concerns and agree with present treatment. (1) Hypercalcemia Current Visit: No Status: Acute Code(s): E83.52 - HYPERCALCEMIA SNOMED Code(s): 29100312 (2) Hypertension Current Visit: No Status: Acute Code(s): I10 - ESSENTIAL (PRIMARY) HYPERTENSION SNOMED Code(s): 21380024
--- NOTE | 2021-06-20 17:51 | P.PN ---
Progress Note - Text Progress Note Date: 06/20/21 I did speak with the hospitalist on-call, Dr. Garcia, and discussed the clinical situation with him and asked him to see the patient this evening for evaluation and treatment.
--- NOTE | 2021-06-20 18:50 | P.CONS ---
History of Present Illness - Reason for Consult Uncontrolled and elevated blood pressure - History of Present Illness Patient is a pleasant 30-year-old female came in because of elevated blood pressure at home. Patient is found to have elevated blood pressures with systolics going up to around 200 and diastolics to 110. Patient was anxious at the time of admission because of which her blood pressures are bit elevated. Patient does have history of hypertension and was on Norvasc in the past which was discontinued because patient was actually hypotensive during her . Patient's liver enzymes are essentially within normal limits except for mildly elevated LDH. Patient denied any headache, blurry vision, chest pain, shortness of breath, abdominal pain. Patient was started on labetalol today patient is also on magnesium sulfate infusion. Patient the latest blood pressures are 144/98 REVIEW OF SYSTEMS: CONSTITUTIONAL: No fever, no malaise, no fatigue. HEENT: No recent visual problems or hearing problems. Denied any sore throat. CARDIOVASCULAR: No chest pain, orthopnea, PND, no palpitations, no syncope. PULMONARY: No shortness of breath, no cough, no hemoptysis. GASTROINTESTINAL: No diarrhea, no nausea, no vomiting, no abdominal pain. NEUROLOGICAL: No headaches, no weakness, no numbness. HEMATOLOGICAL: Denies any bleeding or petechiae. GENITOURINARY: Denies any burning micturition, frequency, or urgency. MUSCULOSKELETAL/RHEUMATOLOGICAL: Denies any joint pain, swelling, or any muscle pain. ENDOCRINE: Denies any polyuria or polydipsia. The rest of the 14-point review of systems is negative. PHYSICAL EXAMINATION: GENERAL: The patient is alert and oriented x3, not in any acute distress. Well developed, well nourished. HEENT: Pupils are round and equally reacting to light. EOMI. No scleral icterus. No conjunctival pallor. Normocephalic, atraumatic. No pharyngeal erythema. No thyromegaly. CARDIOVASCULAR: S1 and S2 present. No murmurs, rubs, or gallops. PULMONARY: Chest is clear to auscultation, no wheezing or crackles. ABDOMEN: Soft, nontender, nondistended, normoactive bowel sounds. No palpable organomegaly. MUSCULOSKELETAL: No joint swelling or deformity. EXTREMITIES: No cyanosis, clubbing, or pedal edema. NEUROLOGICAL: Gross neurological examination did not reveal any focal deficits. SKIN: No rashes. Assessment and plan -Elevated blood pressures: Patient appears to have either essential hypertension R hypertension. Patient was told by her PCP that she has essential hypertension. Patient may need further evaluation as an outpatient for second because of abduction. For now it's appropriate to continue with labetalol 200 but will be switched to 3 times a day. I do not believe patient has preeclampsia. I do not recommend aggressive management of blood pressure either patient doesn't have any symptoms of end organ damage. I will can you to follow the patient is onshe is hospitalized. A primary service wanted to discharge the patient on 200 3 times a day of labetalol with present blood pressures, I believe it's appropriate. Patient's occasional increase in blood pressure is probably physiologic and related to her anxiety which doesn't warrant any additional anti-hypertensive medications. I do not recommend any IV when necessary anti-hypertensive medications unless blood pressure goes above 200 / 110 R patient has symptoms of end organ damage which includes blurry vision from papilledema, shortness of breath from flash pulmonary edema, chest pain from increased pressure on the myocardium. DVT prophylaxis: Ambulation Past Medical History Past Medical History: Asthma, GERD/Reflux, Hypertension Additional Past Medical History / Comment(s): kidney stones, migraines, no rx since 01/2021 for BP, sports induced asthma, hemorrhoid, hypercalcemia History of Any Multi-Drug Resistant Organisms: None Reported Past Surgical History: Section Additional Past Surgical History / Comment(s): wisdom teeth Past Anesthesia/Blood Transfusion Reactions: No Reported Reaction Past Psychological History: Anxiety, Depression Smoking Status: Never smoker Past Alcohol Use History: None Reported Past Drug Use History: None Reported - Past Family History Mother Family Medical History: Cancer Additional Family Medical History / Comment(s): Renal Cancer, Breast Cancer Father Family Medical History: Hypertension Additional Family Medical History / Comment(s): Multiple Sclerosis Brother(s) Family Medical History: Hypertension Additional Family Medical History / Comment(s): Depression Sister(s) Additional Family Medical History / Comment(s): Bipolar Medications and Allergies Home Medications Medication Instructions Recorded Confirmed Type HYDROcodone/APAP 5-325MG [[place] 1 tab PO Q4HR PRN #30 tab 06/16/21 06/20/21 Rx 5-325] Ibuprofen [Motrin] 600 mg PO Q6HR PRN #30 tab 06/16/21 06/20/21 Rx Acetaminophen [Tylenol Extra 1,000 mg PO Q6HR 06/20/21 06/20/21 History Strength] Allergies Allergy/AdvReac Type Severity Reaction Status Date / Time lactose Allergy Abdominal Verified 06/20/21 14:42 Pain nickel Allergy Rash/Hives Verified 06/20/21 14:42 Penicillins Allergy Unknown Verified 06/20/21 14:42 Childhood shellfish derived [Shellfish] Allergy Vomiting Verified 06/20/21 14:42 valsartan AdvReac Chest Pain Verified 06/20/21 14:42 dust Allergy congestion Uncoded 06/20/21 14:42 sun expsure Allergy Rash/Hives Uncoded 06/20/21 14:42 Physical Exam Vitals: Vital Signs Temp Pulse Resp BP Pulse Ox 06/20/21 18:00 97.5 F L 78 16 144/98 97 06/20/21 17:25 75 16 164/98 06/20/21 17:10 71 16 165/101 06/20/21 16:55 74 16 165/100 97 06/20/21 16:40 97.5 F L 76 16 177/109 96 06/20/21 16:25 77 16 172/99 06/20/21 16:10 75 16 180/96 06/20/21 15:55 73 16 166/107 06/20/21 15:40 69 16 182/107 06/20/21 15:18 75 16 168/90 06/20/21 15:09 82 16 166/89 06/20/21 14:58 78 16 177/89 06/20/21 14:49 94 16 190/102 06/20/21 14:42 98 16 201/127 06/20/21 14:29 89 16 180/115 Intake and Output 06/20/21 06/20/21 06/20/21 06:59 14:59 22:59 Intake Total 120 Output Total 400 Balance -280 Intake: Intake, IV Titration 120 Amount Lactated Ringers 1,000 ml 50 @ 100 mls/hr IV .Q10H [facility] [place] Rx#:[id number] Magnesium Sulfate-Water 50 Pmx 20 gm In Water For Injection 1 500ml.bag @ 2 GM/HR 50 mls/hr IV .Q10H [facility] [place] Rx#:[id number] Magnesium Sulfate-Water 20 Pmx 4 gm In Water For Injection 1 100ml.bag @ 300 mls/hr IVPB ONCE ONE Rx#:[id number] Output: Urine 400 Other: Weight 91.172 kg 91.172 kg Results CBC & Chem 7: 06/20/21 15:04 06/20/21 15:04 Labs: Abnormal Lab Results - Last 24 Hours (Table) 06/20/21 06/20/21 Range/Units 15:04 15:04 RBC 3.58 L (3.80-5.40) m/uL Hgb 10.4 L (11.4-16.0) gm/dL Hct 31.1 L (34.0-46.0) % BUN 26 H (7-17) mg/dL Calcium 11.7 H (8.4-10.2) mg/dL Lactate Dehydrogenase 634 H (313-618) U/L
[2021-06-20] MEDS: LABETALOL 200 MG TAB PO SCH (22:02)
[2021-06-20] MEDS: IBUPROFEN 600 MG TAB PO PRN (23:01)
[2021-06-21] MEDS: MAGNESIUM SULFATE-WATER PMX 20 GM in WATER FOR INJECTION 1 500ML.BAG IV SCH (01:07)
[2021-06-21] MEDS: LACTATED RINGERS 1,000 ML IV SCH (02:14)
[2021-06-21] MEDS: ACETAMINOPHEN TAB 325 MG TAB PO PRN ×2 (03:10→13:06)
[2021-06-21 06:42] LABS: Basophils # (A) 0.1 k/uL (0-0.2); Basophils % (A) 1 %; Eosinophils # (A) 0.3 k/uL (0-0.7); Eosinophils % (A) 3 %; HCT 30.9 % (34.0-46.0); HGB 10.2 gm/dL (11.4-16.0); Lymphocytes # (A) 2.2 k/uL (1.0-4.8); Lymphocytes % (A) 26 %; MCH 28.9 pg (25.0-35.0); MCV 87.6 fL (80.0-100.0); Mean Platelet Volume 7.7; Monocytes # (A) 0.4 k/uL (0-1.0); Monocytes % (A) 5 %; Neutrophils # (A) 5.4 k/uL (1.3-7.7); Neutrophils % (A) 63 %; Platelet Count 313 k/uL (150-450); RBC 3.53 m/uL (3.80-5.40); RDW 14.1 % (11.5-15.5); WBC 8.5 k/uL (3.8-10.6)
[2021-06-21 06:52] LABS: Albumin 3.3 g/dL (3.5-5.0); Calcium 9.7 mg/dL (8.4-10.2); Potassium 3.8 mmol/L (3.5-5.1); Total Bilirubin 0.1 mg/dL (0.2-1.3); Total Protein 6.1 g/dL (6.3-8.2)
[2021-06-21 07:05] LABS: Magnesium 7.7 mg/dL (1.6-2.3)
[2021-06-21] MEDS: LABETALOL 200 MG TAB PO SCH ×2 (08:08→15:12)
[2021-06-21] MEDS: IBUPROFEN 600 MG TAB PO PRN (08:08)
[2021-06-21 08:29] VITALS: RESP 16
--- NOTE | 2021-06-21 08:59 | P.PN ---
Progress Note - Text Progress Note Date: 06/21/21 Patient is seen and evaluated this morning. Overall she is feeling well. Her blood pressures continued been mildly to moderately elevated 150s to 160s over 90s. She's had no further 200s over 100s blood pressures. She denies headache, epigastric pain or visual changes. Her reflexes are +1 following making sulfate therapy. Her mag sulfate this morning was 7.7 has been turned down to 1 g per hour. Will order straight cath urine with protein and protein to creatinine ratio to assess actual risk of preeclampsia. She has a history of hypertension that apparently year ago was just is out of control as it is right now with 200s over 100s and was started on antihypertensives, throughout the she did not have any significant pressure elevations and did well through the postoperative/. We will continue observational care at this time and assess her through the day. I did discuss with her possible discharge home later today if blood pressures are stable and medicine has no other concerns.
[2021-06-21 10:27] LABS: Appearance,Urine Clear (Clear); Bilirubin,Urine Negative (Negative); Blood,Urine Negative (Negative); Color,Urine Light Yellow; Glucose,Urine (UA) Negative (Negative); Ketones,Urine Negative (Negative); Leukocyte Esterase,Urine Negative (Negative); Nitrite,Urine Negative (Negative); PH, Urine 5.5 (5.0-8.0); Protein,Urine Negative (Negative); Specific Gravity,Urine 1.015 (1.001-1.035); Urobilinogen,Urine <2.0 mg/dL (<2.0)
[2021-06-21 11:20] LABS: Basophils % (A) 1 %; Eosinophils # (A) 0.2 k/uL (0-0.7); Eosinophils % (A) 3 %; HCT 29.6 % (34.0-46.0); HGB 9.8 gm/dL (11.4-16.0); Lymphocytes # (A) 1.3 k/uL (1.0-4.8); Lymphocytes % (A) 19 %; MCH 29.1 pg (25.0-35.0); MCHC 33.2 g/dL (31.0-37.0); MCV 87.6 fL (80.0-100.0); Mean Platelet Volume 7.5; Monocytes # (A) 0.3 k/uL (0-1.0); Monocytes % (A) 5 %; Neutrophils # (A) 5.1 k/uL (1.3-7.7); Neutrophils % (A) 72 %; Platelet Count 311 k/uL (150-450); RBC 3.38 m/uL (3.80-5.40); WBC 7.1 k/uL (3.8-10.6)
[2021-06-21 11:34] LABS: Uric Acid 7.3 mg/dL (3.7-7.4)
[2021-06-21 11:46] LABS: Magnesium 6.8 mg/dL (1.6-2.3)
[2021-06-21 12:15] VITALS: TEMP 97
[2021-06-21 12:55] LABS: INR 0.8 (<1.2); Prothrombin Time 9.4 sec (9.0-12.0)
[2021-06-21 13:18] LABS: Partial Thromboplastin Time 20.7 sec (22.0-30.0)
--- NOTE | 2021-06-21 13:35 | P.DS ---
Providers Date of admission: 06/20/21 15:17 Expected date of discharge: 06/21/21 Attending physician: Marvel Nix Consults: 06/20/21 17:25 Consult Physician Urgent Consulting Provider: Belinda Mtz Consult Reason/Comments: Management of HTN, hypercalcemia Do you want consulting provider notified?: Yes Primary care physician: Stated None Hospital Course: Patient is doing well this afternoon. Her blood pressures are improved on current regimen of labetalol 200 mg 3 times a day. We will speak with Dr. Martinez verify that he is okay for discharge and she is okay for discharge will plan discharged home today. She has an appointment to see me on Sunday for blood pressure check and incision check. All the questions are answered for her at this time. She did relate to me that prior to she did have blood pressures that were as high as they were yesterday and then a full workup had been done and essentially hypertension was diagnosed. At this time I don't have any other reason to keep her. Medium sulfate has been discontinued with negative protein in her urine and no other signs or symptoms of severe preeclampsia. Patient Condition at Discharge: Stable Plan - Discharge Summary New Discharge Prescriptions: New RX: Labetalol [Trandate] 200 mg PO TID #90 tablet No Action HYDROcodone/APAP 5-325MG [Jet 5-325] 1 tab PO Q4HR PRN #30 tab PRN Reason: Pain RX: Acetaminophen [Tylenol Extra Strength] 1,000 mg PO Q6HR Ibuprofen [Motrin] 600 mg PO Q6HR PRN #30 tab PRN Reason: Pain Discharge Medication List HYDROcodone/APAP 5-325MG [Jet 5-325] 1 tab PO Q4HR PRN #30 tab 06/16/21 [Rx] Ibuprofen [Motrin] 600 mg PO Q6HR PRN #30 tab 06/16/21 [Rx] RX: Acetaminophen [Tylenol Extra Strength] 1,000 mg PO Q6HR 06/20/21 [History] RX: Labetalol [Trandate] 200 mg PO TID #90 tablet 06/21/21 [Rx] Follow up Appointment(s)/Referral(s): Jed Stevens DO [Doctor of Osteopathic Medicine] - 06/24/21 Activity/Diet/Wound Care/Special Instructions: Call or return with any high blood pressures at home. Follow up Sunday for incision check and blood pressure check Discharge Disposition: HOME SELF-CARE
[2021-06-21 13:39] LABS: Creatinine,Urine Random 56.6 mg/dL; Protein/Creatinine Ratio,Urine 0.371
--- NOTE | 2021-06-21 14:29 | P.PN ---
Subjective Patient is a pleasant 30-year-old female came in because of elevated blood pressure at home. Patient is found to have elevated blood pressures with systolics going up to around 200 and diastolics to 110. Patient was anxious at the time of admission because of which her blood pressures are bit elevated. Patient does have history of hypertension and was on Norvasc in the past which was discontinued because patient was actually hypotensive during her . Patient's liver enzymes are essentially within normal limits except for mildly elevated LDH. Patient denied any headache, blurry vision, chest pain, shortness of breath, abdominal pain. Patient was started on labetalol today patient is also on magnesium sulfate infusion. Patient the latest blood pressures are 144/98 06/21/2021 Patient blood pressure is fairly stable but bit elevated patient is on labetalol 200 twice a day which can be transitioned it to Norvasc as an outpatient for midlung need to be tapered rather than stopping it all of a sudden. Patient has essential hypertension no evidence of preeclampsia patient can be discharged from medical perspective. Patient's lowest blood pressure is an 130 systolic over occasional physiologic elevations of blood pressure. I do not recommend increasing labetalol. Patient can be discharged from medical perspective Constitutional: Denied any fatigue denied any fever. Cardio vascular: denied any chest pain, palpitations Gastrointestinal denied any nausea vomiting Pulmonary: Denied any shortness of breath cough Neurologic denied any new focal deficits All inpatient medications were reviewed and appropriate changes in these medications as dictated in the interval history and assessment and plan. Ascites PHYSICAL EXAMINATION: GENERAL: The patient is alert and oriented x3, not in any acute distress. Well developed, well nourished. HEENT: Pupils are round and equally reacting to light. EOMI. No scleral icterus. No conjunctival pallor. Normocephalic, atraumatic. No pharyngeal erythema. No thyromegaly. CARDIOVASCULAR: S1 and S2 present. No murmurs, rubs, or gallops. PULMONARY: Chest is clear to auscultation, no wheezing or crackles. ABDOMEN: Soft, nontender, nondistended, normoactive bowel sounds. No palpable organomegaly. MUSCULOSKELETAL: No joint swelling or deformity. EXTREMITIES: No cyanosis, clubbing, or pedal edema. NEUROLOGICAL: Gross neurological examination did not reveal any focal deficits. SKIN: No rashes. Assessment and plan -Elevated blood pressures: Patient appears to have either essential hypertension or hypertension. Recommend discharging the patient on 9 200 3 times a day of labetalol. Patient probably will need further workup for second because of hypertension as outpatient. Objective - Vital Signs Vital signs: Vital Signs Temp 97.0 F L 06/21/21 12:08 Pulse 65 06/21/21 12:08 Resp 16 06/21/21 12:08 BP 143/91 06/21/21 12:08 Pulse Ox 98 06/21/21 12:08 Intake & Output 06/20/21 06/21/21 06/21/21 18:59 06:59 18:59 Intake Total 120 1045 400 Output Total 400 2600 1400 Balance -280 -1555 -1000 Weight 91.172 kg Intake: IV 150 Magnesium Sulfate-Water 150 Pmx 20 gm In Water For Injection 1 500ml.bag @ 1 GM/HR 25 mls/hr IV .Q20H [facility] Rx#:[id number] Intake, IV Titration 120 1045 250 Amount Lactated Ringers 1,000 ml 50 300 250 @ 100 mls/hr IV .Q10H [facility] Rx#:[id number] Magnesium Sulfate-Water 50 745 Pmx 20 gm In Water For Injection 1 500ml.bag @ 1 GM/HR 25 mls/hr IV .Q20H [facility] Rx#:[id number] Magnesium Sulfate-Water 20 Pmx 4 gm In Water For Injection 1 100ml.bag @ 300 mls/hr IVPB ONCE ONE Rx#:[id number] Output: Urine 400 2600 1400 Straight 300 - Labs CBC & Chem 7: 06/21/21 10:31 06/21/21 10:31 Labs: Abnormal Lab Results - Last 24 Hours (Table) 06/20/21 06/20/21 06/21/21 Range/Units 15:04 15:04 06:27 RBC 3.58 L 3.53 L (3.80-5.40) m/uL Hgb 10.4 L 10.2 L (11.4-16.0) gm/dL Hct 31.1 L 30.9 L (34.0-46.0) % APTT (22.0-30.0) sec BUN 26 H (7-17) mg/dL Creatinine (0.52-1.04) mg/dL Glucose (74-99) mg/dL Calcium 11.7 H (8.4-10.2) mg/dL Magnesium (1.6-2.3) mg/dL Total Bilirubin (0.2-1.3) mg/dL Lactate Dehydrogenase 634 H (313-618) U/L Total Protein (6.3-8.2) g/dL Albumin (3.5-5.0) g/dL 06/21/21 06/21/21 06/21/21 Range/Units 06:27 10:31 10:31 RBC 3.38 L (3.80-5.40) m/uL Hgb 9.8 L (11.4-16.0) gm/dL Hct 29.6 L (34.0-46.0) % APTT (22.0-30.0) sec BUN 23 H 23 H (7-17) mg/dL Creatinine 1.07 H (0.52-1.04) mg/dL Glucose 100 H (74-99) mg/dL Calcium (8.4-10.2) mg/dL Magnesium 7.7 H* 6.8 H* (1.6-2.3) mg/dL Total Bilirubin 0.1 L (0.2-1.3) mg/dL Lactate Dehydrogenase (313-618) U/L Total Protein 6.1 L (6.3-8.2) g/dL Albumin 3.3 L (3.5-5.0) g/dL 06/21/21 Range/Units 10:31 RBC (3.80-5.40) m/uL Hgb (11.4-16.0) gm/dL Hct (34.0-46.0) % APTT 20.7 L (22.0-30.0) sec BUN (7-17) mg/dL Creatinine (0.52-1.04) mg/dL Glucose (74-99) mg/dL Calcium (8.4-10.2) mg/dL Magnesium (1.6-2.3) mg/dL Total Bilirubin (0.2-1.3) mg/dL Lactate Dehydrogenase (313-618) U/L Total Protein (6.3-8.2) g/dL Albumin (3.5-5.0) g/dL
[2021-06-21 15:25] VITALS: BP 138/84; PULSE 75
== END 2021-06-21 15:20 | disposition home or self-care (01) ==
LOC: FBPOP 14:18 → 4FBP 15:17 → INTOOBSV 15:17 → UNDODISIN 06-21 15:20
PROVIDERS: ADMIT Obstetrics & Gynecology; ATTEND Obstetrics & Gynecology
DX: O10.93 Unspecified pre-existing hypertension complicating the puerperium (principal); O90.89 Other complications of the puerperium, not elsewhere classified; E83.52 Hypercalcemia; J45.909 Unspecified asthma, uncomplicated; O99.53 Diseases of the respiratory system complicating the puerperium; Z88.8 Allergy status to other drugs, medicaments and biological substances; Z91.013 Allergy to seafood; Z87.442 Personal history of urinary calculi
CPT/HCPCS: 96376; 96361; 96365; 96366 ×2; 96375; 82570; 80053 ×2; 84156; 82565; 83615 ×2; 83735; 84450; 84460; 84520; 84550 ×2; 85025 ×2; 85384; 85610; 85730; 81003; G0378 ×2; J3475 ×3

== ENCOUNTER → 2022-11-29 | Outpatient (CLI) | payer BC ==
--- NOTE | 2022-11-30 07:15 | US ---
EXAMINATION TYPE: US pelvis complete transvag DATE OF EXAM: 11/29/2022 COMPARISON: us 03/09/[address] 04/15/2021 CLINICAL HISTORY: D25.9 LEIOMYOMA OF UTERUS, UNSPECIFIED. Known fibroid TECHNIQUE: Transvaginal (TV) and Transabdominal (TA) . Transabdominal sonographic images of the pel vis were acquired. Transvaginal sonographic images were medically necessary to better assess the fol lowing anatomy: TV ordered by physician Date of LMP: 11/21/2022 EXAM MEASUREMENTS: Uterus: 10.7 x 4.1 x 5.4 cm Endometrial Stripe: 0.6 cm Right Ovary: 2.2 x 1.8 x 1.6 cm Left Ovary: 2.9 x 1.4 x 2.6 cm 1. Uterus: Anteverted Heterogeneous with probable large pedunculated fibroid as visualized on prio r CT and US= 6.5 x 4.4 x 4.9 cm 2. Endometrium: wnl 3. Right Ovary: wnl, follicles 4. Left Ovary: wnl, only visualized transabdominally, follicles, large mass anterior to left ovary f elt to reflect pedunculated fibroid 5. Bilateral Adnexa: wnl 6. Posterior cul-de-sac: wnl Urinary bladder is sonolucent. Posterior wall is normal. IMPRESSION: 1. Large mass measuring 6 x 5 x 4 cm may be a pedunculated fibroid in the left adnexal region.
== END | disposition home or self-care (01) ==
LOC: RADUSWWP 16:12
PROVIDERS: ATTEND Family Medicine
DX: D25.9 Leiomyoma of uterus, unspecified (principal); N83.8 Other noninflammatory disorders of ovary, fallopian tube and broad ligament
CPT/HCPCS: 76830; 76856

== ENCOUNTER 2023-11-14 20:46 | Emergency (ER) | payer BC ==
[2023-11-14 21:05] VITALS: BP 131/84; PULSE 78; RESP 16; TEMP 98.7
--- NOTE | 2023-11-14 21:16 | ED ---
Skin/Abscess/FB HPI - General Source: patient, RN notes reviewed Mode of arrival: ambulatory Limitations: no limitations <Sanam Up - Last Filed: 11/14/23 21:15> <Adeel Bhandari - Last Filed: 11/15/23 02:11> - General Chief complaint: Skin/Abscess/Foreign Body Stated complaint: Abscess on groin Time Seen by Provider: 11/14/23 21:15 - History of Present Illness Initial comments: Patient is a 33-year-old female presented ER with chief complaint of Bartholin's gland abscess. Patient states she's had this Bartholin's gland cyst for a while now and for the past week is been starting to increase in pain. Patient denies any dysuria or problems urinating. Denies any fevers, chills, night sweats. Patient states she is unable to get to her PCP until next week and is unable to tolerate the pain anymore. (Sanam pU) 33-year-old female presents to the ED with a chief complaint of abscess. Patient states that she was seen earlier at her PCPs office and notes that she has incision and drainage scheduled with an SEARCH STRATEGIST however states that this is on 11/20/22 and notes that she cannot take the pain anymore. Denies fever or chills. No vaginal discharge. No urinary complaints. No other complaints. (Adeel Bhandari) - Related Data Home Medications Medication Instructions Recorded Confirmed Acetaminophen [Tylenol Extra 1,000 mg PO Q6HR 06/20/21 06/20/21 Strength] Previous Rx's Medication Instructions Recorded HYDROcodone/APAP 5-325MG [[place] 1 tab PO Q4HR PRN #30 tab 06/16/21 5-325] Ibuprofen [Motrin] 600 mg PO Q6HR PRN #30 tab 06/16/21 Labetalol [Trandate] 200 mg PO TID #90 tablet 06/21/21 Sulfamethox-Tmp 800-160Mg [Bactrim 1 each PO Q12HR #20 tab 11/15/23 Ds] Allergies Allergy/AdvReac Type Severity Reaction Status Date / Time lactose Allergy Abdominal Verified 11/14/23 21:02 Pain nickel Allergy Rash/Hives Verified 11/14/23 21:02 Penicillins Allergy Unknown Verified 11/14/23 21:02 Childhood shellfish derived [Shellfish] Allergy Vomiting Verified 11/14/23 21:02 valsartan AdvReac Chest Pain Verified 11/14/23 21:02 dust Allergy congestion Uncoded 06/20/21 14:42 sun expsure Allergy Rash/Hives Uncoded 06/20/21 14:42 Review of Systems ROS Other: All systems not noted in ROS Statement are negative. <Sanam Up - Last Filed: 11/14/23 21:15> ROS Other: All systems not noted in ROS Statement are negative. <Adeel Bhandari - Last Filed: 11/15/23 02:11> ROS Statement: Those systems with pertinent positive or pertinent negative responses have been documented in the HPI. Past Medical History Past Medical History: Asthma, GERD/Reflux, Hypertension Additional Past Medical History / Comment(s): kidney stones, migraines, no rx since 01/2021 for BP, sports induced asthma, hemorrhoid, hypercalcemia History of Any Multi-Drug Resistant Organisms: None Reported Past Surgical History: Section Additional Past Surgical History / Comment(s): wisdom teeth Past Anesthesia/Blood Transfusion Reactions: No Reported Reaction Past Psychological History: Anxiety, Depression Smoking Status: Never smoker Past Alcohol Use History: None Reported Past Drug Use History: None Reported - Past Family History Mother Family Medical History: Cancer Additional Family Medical History / Comment(s): Renal Cancer, Breast Cancer Father Family Medical History: Hypertension Additional Family Medical History / Comment(s): Multiple Sclerosis Brother(s) Family Medical History: Hypertension Additional Family Medical History / Comment(s): Depression Sister(s) Additional Family Medical History / Comment(s): Bipolar <Sanam Up - Last Filed: 11/14/23 21:15> General Exam Limitations: no limitations <Sanam Up - Last Filed: 11/14/23 21:15> General appearance: alert, in no apparent distress Eye exam: Present: normal appearance Neck exam: Present: normal inspection Respiratory exam: Present: normal lung sounds bilaterally Cardiovascular Exam: Present: regular rate, normal rhythm GI/Abdominal exam: Present: soft External exam: Present: other (Exam chaperoned by Nancy PEREZ. Exam shows approximately 2 x 3 cm area of redness, warmth, erythema and swelling consistent with Bartholin's cyst.) Neurological exam: Present: alert, oriented X3 Skin exam: Present: warm, dry <Adeel Bhandari - Last Filed: 11/15/23 02:11> - General Exam Comments Initial Comments: Visual Physical Exam Vital signs reviewed General: Well-appearing, nontoxic, no acute distress. Head: Normocephalic, atraumatic Eyes: PERRLA, EOMI ENT: Airway patent Chest: Nonlabored breathing Skin: No visual rash, normal skin tone Neuro: Alert and oriented 3 Musculoskeletal: No gross abnormalities (Sanam Up) Course Vital Signs 11/14/23 21:01 Temperature 98.7 F Pulse Rate 78 Respiratory 16 Rate Blood Pressure 131/84 O2 Sat by Pulse 97 Oximetry Procedures - Incision & Drainage Site: vulva/vagina Size (cm): 2 Anesthetic Used: lidocaine 1% Amount (mLs): 3 I&D Cleaning Method: Chloroprep Sterile Field Used?: No Patient Tolerated Procedure: well, no complications, other (U to decompression performed with 18-gauge needle with approximately 1 L of serosanguineous fluid drainage.) <Adeel Bhandari - Last Filed: 11/15/23 02:11> Medical Decision Making <Sanam Up - Last Filed: 11/14/23 21:15> <Adeel Bhandari - Last Filed: 11/15/23 02:11> - Medical Decision Making I performed the quick note portion of the exam. Electronically signed by Sanam Up PA-C (Sanam Up) Was pt. sent in by a medical professional or institution ([facility], [facility], urgent care, hospital, or snf...) When possible be specific @ -No Did you speak to anyone other than the patient for history (EMS, parent, family, police, friend...)? What history was obtained from this source @ -No Did you review nursing and triage notes (agree or disagree)? Why? @ -I reviewed and agree with nursing and triage notes Were old charts reviewed (outside hosp., previous admission, EMS record, old EKG, old radiological studies, urgent care reports/EKG's, snf records)? Report findings @ -No old charts were reviewed Differential Diagnosis (chest pain, altered mental status, abdominal pain women, abdominal pain men, vaginal bleeding, weakness, fever, dyspnea, syncope, headache, dizziness, GI bleed, back pain, seizure, CVA, palpatations, mental health, musculoskeletal)? @ -Bartholin cyst, cellulitis, MRSA, abscess. This is not meant to be an all- inclusive list. EKG interpreted by me (3pts min.). @ -None X-rays interpreted by me (1pt min.). @ -None done CT interpreted by me (1pt min.). @ -None done U/S interpreted by me (1pt. min.). @ -None done What testing was considered but not performed or refused? (CT, X-rays, U/S, labs)? Why? @ -None What meds were considered but not given or refused? Why? @ -None Did you discuss the management of the patient with other professionals (professionals i.e. , PA, BACCARAT DEALER, lab, RT, psych nurse, healthcare social worker, stone polisher machine, teacher, chief resource officer, adult protective caseworker)? Give summary @ -No Was smoking cessation discussed for >3mins.? @ -No Was critical care preformed (if so, how long)? @ -No Were there social determinants of health that impacted care today? How? (Homelessness, low income, unemployed, alcoholism, drug addiction, transportation, low edu. Level, literacy, decrease access to med. care, [place] [facility], rehab)? @ -No Was there de-escalation of care discussed even if they declined (Discuss DNR or withdrawal of care, Hospice)? DNR status @ -No What co-morbidities impacted this encounter? (DM, HTN, Smoking, COPD, CAD, Cancer, CVA, ARF, Chemo, Hep., AIDS, mental health diagnosis, sleep apnea, morbid obesity)? @ -None Was patient admitted / discharged? Hospital course, mention meds given and route, prescriptions, significant lab abnormalities, going to OR and other pertinent info. @ -Discharged 33-year-old female presents to the ED with a complaint of Bartholin's cyst. Needle decompression performed. For further details please see procedure note. Discharged home in stable condition with instructions to follow up with her SEARCH STRATEGIST as scheduled. Provided prescription for Bactrim double strength. Discussed strict return precautions with patient who verbalizes agreement. Undiagnosed new problem with uncertain prognosis? @ -No Drug Therapy requiring intensive monitoring for toxicity (Heparin, Nitro, Insulin, Cardizem)? @ -No Were any procedures done? @ -Yes, needle decompression Diagnosis/symptom? @ -Bartholin cyst Acute, or Chronic, or Acute on Chronic? @ -Acute Uncomplicated (without systemic symptoms) or Complicated (systemic symptoms)? @ -Uncomplicated Side effects of treatment? @ -No Exacerbation, Progression, or Severe Exacerbation? @ -No Poses a threat to life or bodily function? How? (Chest pain, [place], [place], pneumonia, PE, COPD, DKA, ARF, appy, cholecystitis, CVA, Diverticulitis, Homicidal, Suicidal, threat to staff... and all critical care pts) @ -No (Adeel Bhandari) Disposition <Sanam Up - Last Filed: 11/14/23 21:15> Is patient prescribed a controlled substance at d/c from ED?: No Time of Disposition: 02:11 <Adeel Bhandari - Last Filed: 11/15/23 02:11> Clinical Impression: Bartholin cyst Disposition: HOME SELF-CARE Condition: Good Additional Instructions: Please return to the Emergency Department if symptoms worsen or any other concerns. Please follow up with your PCP/OBGYN as scheduled. Prescriptions: Sulfamethox-Tmp 800-160Mg [Bactrim Ds] 1 each PO Q12HR #20 tab Referrals: Pérez Clark MD [Primary Care Provider] - 1-2 days
[2023-11-15] MEDS ORDERED: LIDOCAINE 1% INJ 10MG/ML (20 ML MDV) SQ ONE (01:09)
[2023-11-15] MEDS ORDERED: SULFAMETH-TMP DS STARTER PACK 2 TAB BTL PO STA (02:11)
== END 2023-11-15 02:18 | disposition home or self-care (01) ==
LOC: EC 20:46
DX: N75.0 Cyst of Bartholin's gland (principal); J45.909 Unspecified asthma, uncomplicated; I10 Essential (primary) hypertension; Z91.011 Allergy to milk products; Z88.0 Allergy status to penicillin; Z88.8 Allergy status to other drugs, medicaments and biological substances; Z91.013 Allergy to seafood; Z86.59 Personal history of other mental and behavioral disorders
CPT/HCPCS: 99282; 56420; J2001